=== PATIENT | female | born 1940 | race Caucasian/White ===

== ENCOUNTER 2016-11-27 17:36 | Inpatient (IN) | payer MEDICARE, BC ==
[2016-11-27] MEDS ORDERED: ASPIRIN 81 MG CHEW PO STA (18:43)
[2016-11-27] MEDS ORDERED: SODIUM CHLORIDE 0.9% 1,000 ML IV STA (18:43)
--- NOTE | 2016-11-27 18:52 | ED ---
Recheck HPI - General Chief Complaint: Recheck/Abnormal Lab/Rx Stated Complaint: anormal ekg Time Seen by Provider: 11/27/16 18:00 Source: patient, RN notes reviewed Mode of arrival: wheelchair Limitations: no limitations - History of Present Illness Initial Comments: This is a 76-year-old female with essentially benign past medical history who was sent in from her doctor's office for evaluation for chest discomfort and shortness of breath. She states it over the past week and overdose last day or so she was cutting grass and normally can do this all problems this time however she stopped 6 times for a period time because she was exertional dyspnea. She also had burning midsternal chest discomfort which was mild to moderate in severity. She currently is symptom free with did have apparently several other episodes of chest discomfort. She reason with her doctor's office because thought she had a urinary tract infection. EKG was done the PATIENT was sent here for further evaluation. She denies any fevers chills nausea vomiting sweats she does have a remote family history of a grandmother with heart disease that 78 patient personally has no personal history she is not a smoker. She does take a baby aspirin every evening. MD Complaint: other - Related Data Home Medications Medication Instructions Recorded Confirmed Calcium Carbonate [Calcium] 600 mg PO BID 11/05/14 11/27/16 Omeprazole [PriLOSEC] 20 mg PO AC-BRKFST 11/05/14 11/27/16 Pravastatin Sodium [Pravachol] 80 mg PO HS 11/05/14 11/27/16 Aspirin EC [Ecotrin Low Dose] 81 mg PO HS 11/27/16 11/27/16 Chlorthalidone [Hygroten] 50 mg PO DAILY 11/27/16 11/27/16 Furosemide [Lasix] 40 mg PO DAILY PRN 11/27/16 11/27/16 Multivitamins, Thera [Multivitamin 1 tab PO DAILY 11/27/16 11/27/16 (formulary)] Nitrofurantoin Monohyd/M-Cryst 100 mg PO BID 11/27/16 11/27/16 [Macrobid] Potassium Chloride ER [K-Dur 20] 20 meq PO DAILY PRN 11/27/16 11/27/16 Allergies Allergy/AdvReac Type Severity Reaction Status Date / Time aspirin AdvReac Burning Verified 11/27/16 18:57 sensation in stomach. Can only take Enteric Coated. erythromycin base AdvReac Abdominal Verified 11/27/16 17:49 Pain Estrogen Shot Preservative Allergy Swelling Uncoded 11/27/16 18:57 Review of Systems ROS Statement: Those systems with pertinent positive or pertinent negative responses have been documented in the HPI. ROS Other: All systems not noted in ROS Statement are negative. Past Medical History Past Medical History: Cancer, GERD/Reflux, Hyperlipidemia, Hypertension, Osteoarthritis (OA) Additional Past Medical History / Comment(s): recent epigastric pain, hx. skin cancer History of Any Multi-Drug Resistant Organisms: None Reported Past Surgical History: Section, Hysterectomy, Tubal Ligation Past Anesthesia/Blood Transfusion Reactions: No Reported Reaction Past Psychological History: Anxiety Smoking Status: Never smoker - Past Family History Father Family Medical History: Cancer General Exam - General Exam Comments Initial Comments: This is a well up well-nourished awake alert oriented 3 female Limitations: no limitations General appearance: alert, in no apparent distress Head exam: Present: atraumatic, normocephalic, normal inspection Eye exam: Present: normal appearance, PERRL, EOMI. Absent: scleral icterus, conjunctival injection, periorbital swelling ENT exam: Present: normal exam, mucous membranes moist Neck exam: Present: normal inspection. Absent: tenderness, meningismus, lymphadenopathy Respiratory exam: Present: normal lung sounds bilaterally. Absent: respiratory distress, wheezes, rales, rhonchi, stridor Cardiovascular Exam: Present: regular rate, normal rhythm, normal heart sounds. Absent: systolic murmur, diastolic murmur, rubs, gallop, clicks GI/Abdominal exam: Present: soft, normal bowel sounds. Absent: distended, tenderness, guarding, rebound, rigid Extremities exam: Present: normal inspection, full ROM, normal capillary refill. Absent: tenderness, pedal edema, joint swelling, calf tenderness Back exam: Present: normal inspection Neurological exam: Present: alert, oriented X3, CN II-XII intact Psychiatric exam: Present: normal affect, normal mood Skin exam: Present: warm, dry, intact, normal color. Absent: rash Course Vital Signs 11/27/16 11/27/16 11/27/16 17:45 19:02 19:05 Temperature 97.7 F Pulse Rate 64 68 Pulse Rate [ 68 Reed [employer] Instrument [employer]airer ] Respiratory 16 17 Rate Blood Pressure 174/84 180/81 O2 Sat by Pulse 99 100 Oximetry 11/27/16 11/27/16 20:14 21:01 Temperature 97.6 F Pulse Rate 65 62 Pulse Rate [ [employer]airer ] Respiratory 15 18 Rate Blood Pressure 188/85 152/71 O2 Sat by Pulse 98 99 Oximetry Medical Decision Making - Medical Decision Making I did discuss findings with patient family members patient will be admitted for evaluation of chest pain which is suspicious for new-onset angina. - Lab Data Result diagrams: 11/27/16 18:45 11/27/16 18:45 Lab Results 11/27/16 11/27/16 11/27/16 Range/Units 18:45 18:45 18:45 WBC 8.3 (3.8-10.6) k/uL RBC 4.70 (3.80-5.40) m/uL Hgb 14.3 (11.4-16.0) gm/dL Hct 44.9 (34.0-46.0) % MCV 95.5 (80.0-100.0) fL MCH 30.5 (25.0-35.0) pg MCHC 32.0 (31.0-37.0) g/dL RDW 16.2 H (11.5-15.5) % Plt Count 285 (150-450) k/uL Neutrophils % 68 % Lymphocytes % 23 % Monocytes % 5 % Eosinophils % 2 % Basophils % 1 % Neutrophils # 5.6 (1.3-7.7) k/uL Lymphocytes # 1.9 (1.0-4.8) k/uL Monocytes # 0.4 (0-1.0) k/uL Eosinophils # 0.2 (0-0.7) k/uL Basophils # 0.0 (0-0.2) k/uL Anisocytosis Slight PT (9.0-12.0) sec INR (<1.1) APTT (22.0-30.0) sec D-Dimer (<0.60) mg/L FEU Sodium 141 (137-145) mmol/L Potassium 3.6 (3.5-5.1) mmol/L Chloride 100 (98-107) mmol/L Carbon Dioxide 31 H (22-30) mmol/L Anion Gap 10 mmol/L BUN 12 (7-17) mg/dL Creatinine 0.50 L (0.52-1.04) mg/dL Est GFR (MDRD) Af Amer >60 (>60 ml/min/1.73 sqM) Est GFR (MDRD) Non-Af >60 (>60 ml/min/1.73 sqM) Glucose 102 H (74-99) mg/dL Calcium 9.7 (8.4-10.2) mg/dL Magnesium 1.5 L (1.6-2.3) mg/dL Total Bilirubin 0.6 (0.2-1.3) mg/dL AST 24 (14-36) U/L ALT 25 (9-52) U/L Alkaline Phosphatase 109 (38-126) U/L Total Creatine Kinase 40 (30-135) U/L CK-MB (CK-2) 1.1 (0.0-2.4) ng/mL CK-MB (CK-2) Rel Index 2.8 Troponin I <0.012 (0.000-0.034) ng/mL NT-Pro-B Natriuret Pep pg/mL Total Protein 6.9 (6.3-8.2) g/dL Albumin 4.3 (3.5-5.0) g/dL Amylase 40 (30-110) U/L Lipase 59 (23-300) U/L 11/27/16 11/27/16 Range/Units 18:45 18:45 WBC (3.8-10.6) k/uL RBC (3.80-5.40) m/uL Hgb (11.4-16.0) gm/dL Hct (34.0-46.0) % MCV (80.0-100.0) fL MCH (25.0-35.0) pg MCHC (31.0-37.0) g/dL RDW (11.5-15.5) % Plt Count (150-450) k/uL Neutrophils % % Lymphocytes % % Monocytes % % Eosinophils % % Basophils % % Neutrophils # (1.3-7.7) k/uL Lymphocytes # (1.0-4.8) k/uL Monocytes # (0-1.0) k/uL Eosinophils # (0-0.7) k/uL Basophils # (0-0.2) k/uL Anisocytosis PT 10.4 (9.0-12.0) sec INR 1.0 (<1.1) APTT 25.0 (22.0-30.0) sec D-Dimer 0.20 (<0.60) mg/L FEU Sodium (137-145) mmol/L Potassium (3.5-5.1) mmol/L Chloride (98-107) mmol/L Carbon Dioxide (22-30) mmol/L Anion Gap mmol/L BUN (7-17) mg/dL Creatinine (0.52-1.04) mg/dL Est GFR (MDRD) Af Amer (>60 ml/min/1.73 sqM) Est GFR (MDRD) Non-Af (>60 ml/min/1.73 sqM) Glucose (74-99) mg/dL Calcium (8.4-10.2) mg/dL Magnesium (1.6-2.3) mg/dL Total Bilirubin (0.2-1.3) mg/dL AST (14-36) U/L ALT (9-52) U/L Alkaline Phosphatase (38-126) U/L Total Creatine Kinase (30-135) U/L CK-MB (CK-2) (0.0-2.4) ng/mL CK-MB (CK-2) Rel Index Troponin I (0.000-0.034) ng/mL NT-Pro-B Natriuret Pep 182 pg/mL Total Protein (6.3-8.2) g/dL Albumin (3.5-5.0) g/dL Amylase (30-110) U/L Lipase (23-300) U/L - EKG Data -: EKG Interpreted by Ca EKG shows normal: sinus rhythm (Sinus rhythm a rate of 67. 01 24 QRS duration 80 daily since QTC of 434/[address]-T wave configuration as compared to an EKG done in the office earlier today. It appears to have a similar morphology.) - Radiology Data Radiology results: report reviewed (I did review the imaging and reports no acute findings are seen.), image reviewed Disposition Clinical Impression: Unstable angina Disposition: ADMITTED IP TO THIS [facility] Condition: Stable Referrals: Ran Mcgrath MD [Primary Care Provider] - 1-2 days
[2016-11-27 18:59] LABS: Anisocytosis Slight; Basophils % (A) 1 %; CHCM 32.6; Eosinophils # (A) 0.2 k/uL (0-0.7); Eosinophils % (A) 2 %; HCT 44.9 % (34.0-46.0); HDW 2.75; HGB 14.3 gm/dL (11.4-16.0); Luc # (Auto) 0.16; Luc % (Auto) 2; Lymphocytes # (A) 1.9 k/uL (1.0-4.8); Lymphocytes % (A) 23 %; MCH 30.5 pg (25.0-35.0); MCV 95.5 fL (80.0-100.0); Mean Platelet Volume 6.5; Monocytes # (A) 0.4 k/uL (0-1.0); Monocytes % (A) 5 %; Neutrophils # (A) 5.6 k/uL (1.3-7.7); Neutrophils % (A) 68 %; RDW 16.2 % (11.5-15.5); WBC 8.3 k/uL (3.8-10.6); WBC (Perox) 8.04
[2016-11-27 19:09] LABS: ALT 25 U/L (9-52); AST 24 U/L (14-36); Alkaline Phosphatase 109 U/L (38-126); Amylase 40 U/L (30-110); Anion Gap 10 mmol/L; Blood Urea Nitrogen 12 mg/dL (7-17); Calcium 9.7 mg/dL (8.4-10.2); Carbon Dioxide 31 mmol/L (22-30); Chloride 100 mmol/L (98-107); Glucose 102 mg/dL (74-99); Magnesium 1.5 mg/dL (1.6-2.3); Non-African American GFR(MDRD) >60 (>60 ml/min/1.73 sqM); Potassium 3.6 mmol/L (3.5-5.1); Sodium 141 mmol/L (137-145); Total Bilirubin 0.6 mg/dL (0.2-1.3); Total Protein 6.9 g/dL (6.3-8.2)
--- NOTE | 2016-11-27 19:09 | XR ---
EXAMINATION TYPE: XR chest 2V DATE OF EXAM: 11/27/2016 COMPARISON: NONE HISTORY: Chest pain TECHNIQUE: Frontal and lateral views of the chest are obtained. FINDINGS: Heart and mediastinum are normal. Lungs are clear. There is no pleural effusion. There are no hilar masses. There is some mild linear density in the right upper lobe. Bony thorax is intact. IMPRESSION: Minimal subsegmental atelectasis in the right upper lobe. Normal heart.
[2016-11-27 19:15] LABS: Prothrombin Time 10.4 sec (9.0-12.0)
[2016-11-27 19:30] LABS: Creatine Kinase 40 U/L (30-135)
[2016-11-27 19:41] LABS: Creatine Kinase MB 1.1 ng/mL (0.0-2.4); Troponin I <0.012 ng/mL (0.000-0.034)
[2016-11-27] MEDS ORDERED: MAGNESIUM SULFATE-D5W PMX 1 GM in DEXTROSE/WATER 1 100ML.BAG IVPB ONE (21:00)
[2016-11-27] MEDS ORDERED: NITROGLYCERIN SL TABS 0.4 MG TAB SUBLINGUAL PRN (21:07)
[2016-11-27] MEDS ORDERED: HEPARIN SODIUM,PORCINE 5,000 UNIT/ML 1 ML VIAL IV ONE (21:07)
[2016-11-27] MEDS ORDERED: POTASSIUM CHLORIDE ER 20 MEQ TAB.ER PO PRN (21:09)
[2016-11-27] MEDS ORDERED: FUROSEMIDE 40 MG TAB PO PRN (21:09)
--- NOTE | 2016-11-27 21:11 | ED ---
Medical Decision Making - Lab Data Result diagrams: 11/27/16 18:45 11/27/16 18:45 Lab Results 11/27/16 11/27/16 11/27/16 Range/Units 18:45 18:45 18:45 WBC 8.3 (3.8-10.6) k/uL RBC 4.70 (3.80-5.40) m/uL Hgb 14.3 (11.4-16.0) gm/dL Hct 44.9 (34.0-46.0) % MCV 95.5 (80.0-100.0) fL MCH 30.5 (25.0-35.0) pg MCHC 32.0 (31.0-37.0) g/dL RDW 16.2 H (11.5-15.5) % Plt Count 285 (150-450) k/uL Neutrophils % 68 % Lymphocytes % 23 % Monocytes % 5 % Eosinophils % 2 % Basophils % 1 % Neutrophils # 5.6 (1.3-7.7) k/uL Lymphocytes # 1.9 (1.0-4.8) k/uL Monocytes # 0.4 (0-1.0) k/uL Eosinophils # 0.2 (0-0.7) k/uL Basophils # 0.0 (0-0.2) k/uL Anisocytosis Slight PT (9.0-12.0) sec INR (<1.1) APTT (22.0-30.0) sec D-Dimer (<0.60) mg/L FEU Sodium 141 (137-145) mmol/L Potassium 3.6 (3.5-5.1) mmol/L Chloride 100 (98-107) mmol/L Carbon Dioxide 31 H (22-30) mmol/L Anion Gap 10 mmol/L BUN 12 (7-17) mg/dL Creatinine 0.50 L (0.52-1.04) mg/dL Est GFR (MDRD) Af Amer >60 (>60 ml/min/1.73 sqM) Est GFR (MDRD) Non-Af >60 (>60 ml/min/1.73 sqM) Glucose 102 H (74-99) mg/dL Calcium 9.7 (8.4-10.2) mg/dL Magnesium 1.5 L (1.6-2.3) mg/dL Total Bilirubin 0.6 (0.2-1.3) mg/dL AST 24 (14-36) U/L ALT 25 (9-52) U/L Alkaline Phosphatase 109 (38-126) U/L Total Creatine Kinase 40 (30-135) U/L CK-MB (CK-2) 1.1 (0.0-2.4) ng/mL CK-MB (CK-2) Rel Index 2.8 Troponin I <0.012 (0.000-0.034) ng/mL NT-Pro-B Natriuret Pep pg/mL Total Protein 6.9 (6.3-8.2) g/dL Albumin 4.3 (3.5-5.0) g/dL Amylase 40 (30-110) U/L Lipase 59 (23-300) U/L 11/27/16 11/27/16 Range/Units 18:45 18:45 WBC (3.8-10.6) k/uL RBC (3.80-5.40) m/uL Hgb (11.4-16.0) gm/dL Hct (34.0-46.0) % MCV (80.0-100.0) fL MCH (25.0-35.0) pg MCHC (31.0-37.0) g/dL RDW (11.5-15.5) % Plt Count (150-450) k/uL Neutrophils % % Lymphocytes % % Monocytes % % Eosinophils % % Basophils % % Neutrophils # (1.3-7.7) k/uL Lymphocytes # (1.0-4.8) k/uL Monocytes # (0-1.0) k/uL Eosinophils # (0-0.7) k/uL Basophils # (0-0.2) k/uL Anisocytosis PT 10.4 (9.0-12.0) sec INR 1.0 (<1.1) APTT 25.0 (22.0-30.0) sec D-Dimer 0.20 (<0.60) mg/L FEU Sodium (137-145) mmol/L Potassium (3.5-5.1) mmol/L Chloride (98-107) mmol/L Carbon Dioxide (22-30) mmol/L Anion Gap mmol/L BUN (7-17) mg/dL Creatinine (0.52-1.04) mg/dL Est GFR (MDRD) Af Amer (>60 ml/min/1.73 sqM) Est GFR (MDRD) Non-Af (>60 ml/min/1.73 sqM) Glucose (74-99) mg/dL Calcium (8.4-10.2) mg/dL Magnesium (1.6-2.3) mg/dL Total Bilirubin (0.2-1.3) mg/dL AST (14-36) U/L ALT (9-52) U/L Alkaline Phosphatase (38-126) U/L Total Creatine Kinase (30-135) U/L CK-MB (CK-2) (0.0-2.4) ng/mL CK-MB (CK-2) Rel Index Troponin I (0.000-0.034) ng/mL NT-Pro-B Natriuret Pep 182 pg/mL Total Protein (6.3-8.2) g/dL Albumin (3.5-5.0) g/dL Amylase (30-110) U/L Lipase (23-300) U/L Disposition Clinical Impression: Unstable angina, Hypomagnesemia Disposition: ADMITTED IP TO THIS HOSP Condition: Stable Referrals: Ran Mcgrath MD [Primary Care Provider] - 1-2 days
[2016-11-27] MEDS ORDERED: HEPARIN SODIUM,PORCINE/D5W PMX 25,000 UNIT in DEXTROSE/WATER 1 500ML.BAG IV SCH (21:15)
[2016-11-27] MEDS: SODIUM CHLORIDE 0.9% 1,000 ML IV SCH (21:26)
[2016-11-27] MEDS ORDERED: CHLORTHALIDONE 25 MG TAB PO SCH (22:45)
[2016-11-27] MEDS ORDERED: CHLORTHALIDONE 25 MG TAB PO ONE (22:45)
[2016-11-27 22:56] VITALS: BMI 35.2
[2016-11-27] MEDS: PRAVASTATIN SODIUM 80 MG TAB PO SCH (23:02)
[2016-11-28 02:05] LABS: Troponin I 0.027 ng/mL (0.000-0.034)
[2016-11-28] MEDS: NITROGLYCERIN OINT 1 INCH/GM PACKET TOPICAL SCH ×5 (03:51→23:28)
[2016-11-28 05:20] LABS: Cholesterol 160 mg/dL (<200); HDL Cholesterol 55 mg/dL (40-60); Triglycerides 159 mg/dL (<150)
[2016-11-28] MEDS ORDERED: ALPRAZolam 0.25 MG TAB PO PRN (07:13)
[2016-11-28] MEDS ORDERED: SODIUM CHLORIDE 0.9% 1,000 ML in EMPTY BAG 1 BAG IV ONE (07:13)
[2016-11-28] MEDS ORDERED: NITROGLYCERIN SL TABS 0.4 MG TAB SUBLINGUAL PRN (07:13)
[2016-11-28] MEDS ORDERED: ATORVASTATIN 80 MG TAB PO STA (07:13)
[2016-11-28] MEDS ORDERED: ASPIRIN 325 MG TAB PO STA (07:13)
[2016-11-28] MEDS ORDERED: ALPRAZolam 0.5 MG TAB PO PRN (07:13)
[2016-11-28 07:54] LABS: Creatine Kinase MB 1.1 ng/mL (0.0-2.4); Troponin I 0.014 ng/mL (0.000-0.034)
--- NOTE | 2016-11-28 08:16 | CONS ---
DATE OF CONSULTATION: Mrs. Jalloh is a 76-year-old female with known history of hypertension and hyperlipidemia who presented to the walk-in clinic because of symptoms of UTI. She describes symptoms of chest discomfort, burning like that occurred last week while she was cutting the grass. Every time she cuts the grass, she gets discomfort. She will sit down, the discomfort will resolve and when she happens to get up and cut the grass again the discomfort reoccurs. Because of those symptom, she was sent to the emergency room. At time of my evaluation, she was pain free. Patient had no prior similar symptoms and no prior documented history of significant obstructive disease. She is followed by Dr. Grace on a regular basis and according to her, underwent cardiac catheterization about 5 years ago that was unremarkable. Patient has mild dyspnea on exertion, has no dizziness, no palpitation. She has some peripheral edema. No PND. No orthopnea. Her coronary risk factors are remarkable for hypertension, hyperlipidemia. She is a nonsmoker, nondiabetic. Her medications include chlorthalidone 50 mg daily, omeprazole, pravastatin 80 mg daily, aspirin 81 mg daily, calcium and vitamins. REVIEW OF SYSTEMS: RESPIRATORY SYSTEM: She has no recent wheezing. No cough. She has mild dyspnea on exertion. GI SYSTEM: No recent GI bleeding. No peptic ulcer disease. SYSTEM: No hematuria. She has symptoms of urinary tract infection. NERVOUS SYSTEM: No history of stroke or seizure. PHYSICAL EXAMINATION: A 76-year-old female, alert, oriented, in no apparent distress. Blood pressure 115/50 with the heart rate in the 60s. LUNGS: Clear. HEART: Regular rate and rhythm. S1, S2, no S3, no rub. ABDOMEN: Soft, nontender, positive bowel sounds. No organomegaly. EXTREMITIES: +1 edema. Intact distal pulses. LABORATORY DATA: EKG revealed sinus mechanism, rate [address]-T wave changes. Her troponin less than 0.012 and 0.027. Cholesterol 103, LDL of 73. Her magnesium 1.5. BUN and creatinine 12 and 0.5. Potassium 3.6. Hemoglobin of 14.3. IMPRESSION: 1. Symptoms of chest discomfort highly suggestive of new onset angina pectoris in a patient with history of hypertension and hyperlipidemia. 2. History of peripheral vascular disease with right carotid moderate disease. 3. Hypertension. 4. Hyperlipidemia. RECOMMENDATIONS: I have recommended to obtain echocardiogram with Doppler. I have also recommended to proceed with coronary angiography to further assess her status and guide her treatment. The procedure will be done by Dr. Grace. The rationale behind the procedure as well as risks and complications were discussed with the patient, who is full understanding and agreement. Thank you for this consult. We will follow with you.
[2016-11-28] MEDS: CALCIUM CARBONATE 500 MG CHEWABLE PO SCH ×2 (09:04→20:35)
[2016-11-28] MEDS: ASPIRIN 325 MG TAB PO SCH (09:04)
[2016-11-28] MEDS: CHLORTHALIDONE 25 MG TAB PO SCH (09:04)
[2016-11-28] MEDS: PANTOPRAZOLE 40 MG TABLET PO SCH (09:04)
--- NOTE | 2016-11-28 11:11 | ECHOF ---
Referral Reason: MEASUREMENTS -------- HEIGHT: 152.4 cm WEIGHT: 81.6 kg BP: 129/63 IVSd: 1.1 cm (0.6 - 1.1) LVIDd: 3.6 cm (3.9 - 5.3) LVPWd: 1.2 cm (0.6 - 1.1) IVSs: 1.6 cm LVIDs: 2.0 cm LVPWs: 1.3 cm LAESV Index (A-L): 26.53 ml/m Ao Diam: 2.8 cm (2.0 - 3.7) AV Cusp: 1.6 cm (1.5 - 2.6) LA Diam: 3.9 cm (2.7 - 3.8) MV EXCURSION: 12.842 mm (> 18.000) MV EF SLOPE: 67 mm/s (70 - 150) EPSS: 0.3 cm MV E Paul: 0.76 m/s MV DecT: 204 ms MV A Paul: 0.99 m/s MV E/A Ratio: 0.76 RAP: 5.00 mmHg RVSP: 15.06 mmHg FINDINGS -------- Sinus rhythm. This was a technically good study. There is borderline concentric left ventricular hypertrophy. Overall left ventricular systolic function is normal with, an EF between 55 - 60 %. The right ventricle is normal in size and function. Normal LA size by volume 22+/-6 ml/m2. The right atrium is normal in size. Aortic valve is trileaflet and is mildly thickened. The mitral valve leaflets are mildly thickened. [id number]-[id number] mitral regurgitation is present. Mild tricuspid regurgitation present. The right ventricular systolic pressure, as measured by Doppler, is 15.06mmHg. Pulmonic valve appears structurally normal. The aortic root size is normal. The pericardium is normal. CONCLUSIONS -------- 1. Sinus rhythm. 2. Cupk-km-ebzxuhgg mitral regurgitation is present. 3. Mild tricuspid regurgitation present. 4. The right ventricular systolic pressure, as measured by Doppler, is 15.06mmHg. 5. Pulmonic valve appears structurally normal. 6. The aortic root size is normal. 7. The pericardium is normal. 8. This was a technically good study. 9. There is borderline concentric left ventricular hypertrophy. 10. Overall left ventricular systolic function is normal with, an EF between 55 - 60 %. 11. The right ventricle is normal in size and function. 12. Normal LA size by volume 22+/-6 ml/m2. 13. The right atrium is normal in size. 14. Aortic valve is trileaflet and is mildly thickened. 15. The mitral valve leaflets are mildly thickened. CFO: Danni Trujillo RDCS
[2016-11-28] MEDS ORDERED: HEPARIN SODIUM 1,000 UNIT/ML VIAL ONE (15:39)
[2016-11-28] MEDS ORDERED: LIDOCAINE 2% INJ 20 MG/ML (20 ML MDV) ONE (15:40)
[2016-11-28] MEDS ORDERED: MIDAZOLAM 2 MG/2 ML VIAL ONE (16:14)
[2016-11-28] MEDS ORDERED: SODIUM CHLORIDE 0.9% 1,000 ML IV ONE (16:26)
[2016-11-28] MEDS ORDERED: MIDAZOLAM 2 MG/2 ML VIAL IV ONE (16:26)
[2016-11-28] MEDS ORDERED: LIDOCAINE 2% INJ 20 MG/ML SQ ONE (16:30)
[2016-11-28] MEDS ORDERED: fentaNYL (PF) 50 MCG/ML 2 ML AMP ONE (16:32)
[2016-11-28] MEDS ORDERED: fentaNYL (PF) 50 MCG/ML 2 ML AMP IV ONE (16:33)
[2016-11-28] MEDS ORDERED: IOHEXOL 350 MG/ML 125ML BOTTLE INTRATHECA ONE (16:39)
[2016-11-28] MEDS ORDERED: RX INFO: IV CONTRAST WAS GIVEN 1 EACH MISC MISCELLANE PRN (16:51)
--- NOTE | 2016-11-28 17:13 | CC ---
DATE OF SERVICE: INDICATION: Unstable angina. After obtaining informed consent, left heart catheterization and coronary angiogram are performed via the right femoral artery using standard Ellyn catheters. Patient tolerated the procedure well without any obvious immediate complications. A femoral angiogram was performed and Angio-Seal was deployed for hemostasis total sedation time was 20 minutes. FINDINGS: HEMODYNAMICS: Left ventricular end-diastolic pressure is 14 mm. There is no significant gradient across the aortic valve. ANGIOGRAPHIC DATA: LEFT MAIN CORONARY ARTERY: Left main coronary artery is a normal size vessel and is free of stenosis. Divides into left anterior descending coronary artery and circumflex coronary artery. CIRCUMFLEX CORONARY ARTERY: Circumflex coronary artery gives off a high OM branch, shows mild atherosclerotic plaque. LEFT ANTERIOR DESCENDING CORONARY ARTERY: LAD shows a mild atherosclerotic plaque in its midportion. RIGHT CORONARY ARTERY: Right coronary artery is a large dominant vessel and is free of significant stenosis. CONCLUSIONS: 1. Mild nonobstructive coronary artery disease. 2. Calcified vessels. 3. Normal left ventricular end-diastolic pressures. PLAN: Patient's chest discomfort is probably noncardiac in origin. Her management is going to be in the form of optimal medical therapy and risk factor modification. The patient can be discharged home tomorrow morning and follow-up arranged in my office in 2 weeks.
[2016-11-28] MEDS: SODIUM CHLORIDE 0.9% 1,000 ML IV SCH ×2 (17:44→23:29)
--- NOTE | 2016-11-28 19:31 | HP ---
DATE OF ADMISSION: 11/27/2016 PRESENTING COMPLAINT: Chest burn. HISTORY OF PRESENTING COMPLAINT: A very pleasant 76 -year-old patient of Dr. Mcgrath whose chronic stable medical conditions include GERD, hyperlipidemia, hypertension, osteoarthritis, anxiety. 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 Developed burning sensation. The patient relaxed and took some water. Did a few more laps but she had to stop off and on. She has noticed that with activity she is getting some burning sensation in the chest, happen to go into her family doctor for a UTI, after they talked to her, they decided to send her in because of her symptoms. REVIEW OF SYSTEMS: The patient had no previous cardiac history. Patient does gets short-winded though with activity. Admitted for the same for cardiac work-up. REVIEW OF SYSTEMS: CONSTITUTIONAL: Tired. HEENT: None. RESPIRATORY: As above. CARDIOVASCULAR: As above. GASTROINTESTINAL: Heartburn. GENITOURINARY: None. MUSCULOSKELETAL: Pain in the joints. Dermatological: None. HEMATOLOGICAL: None. LYMPHATIC: None. PSYCHIATRY: Anxiety. NEUROLOGICAL: None. Past history of GERD, hypertension, hyperlipidemia, osteoarthritis, anxiety. Skin cancer. PAST SURGICAL HISTORY: , hysterectomy, tonsillectomy, tubal ligation. SOCIAL HISTORY: Does not smoke or drink alcohol. . FAMILY HISTORY: Cancer, type unknown. HOME MEDICATIONS: 1. Potassium 20 mEq a day and p.r.n. 2. Lasix 40 mg daily p.r.n. 3. Pravachol 80 mg q.h.s. 4. Prilosec 20 mg with breakfast. 5. Nitrofuran. 6. Macrobid 100 mg p.o. b.i.d., 7. Multivitamin 1 tablet. 8. Hydrocodone 50 mg p.o. daily. 9. Calcium 600 mg p.o. t.i.d. 10. Aspirin 81 mg p.o. q.h.s. ALLERGIES: ASPIRIN, ERYTHROMYCIN, ESTROGEN. On examination, temperature 97.5, pulse 69, respiratory rate 16, blood pressure 115/67, pulse ox 95% on room air. GENERAL: Well built, BMI of 35.2, lying in bed, comfortable. EYES: Pupils equal. Conjunctivae normal. HEENT: External appearance of nose and ears normal. Oral cavity normal. NECK: JVD not raised. Mass not palpable. RESPIRATORY: Effort normal. Lungs are clear. CARDIOVASCULAR: First and second sounds normal. No edema. ABDOMEN: Soft, nontender. Liver and spleen not palpable. LYMPHATIC: No lymph nodes palpable in neck or axillae. PSYCHIATRY: Alert and oriented x3. Mood and affect normal. NEUROLOGICAL: Pupils equal. Cranial nerves contact us grossly intact. Power and sensation grossly intact. MUSCULOSKELETAL: Evidence of osteoarthritis especially in the hands and knees. INVESTIGATIONS: White count 8.3, hemoglobin 14.3, potassium 3.6. BUN 12, creatinine 0.5. Troponin 0.012, 0.027, LDL 73. EKG shows nonspecific ST-segment changes. 2D echocardiogram EF 55-60%. ASSESSMENT: 1. Unstable angina ( ) presentation and the patient's cardiac risk factors include hyperlipidemia, hypertension, obesity, her age and some EKG changes, now being scheduled for a cardiac catheterization by cardiology for definite diagnosis. 2. Gastroesophageal reflux disease. 3. Essential hypertension. 4. Hyperlipidemia. 5. Primary osteoarthritis in multiple joints. 6. Anxiety, not otherwise specified. 7. Obesity; body mass index 35.2. 8. IV heparin monitoring. PLAN: Patient is on aspirin, nitro paste and IV heparin, boarded for cardiac catheterization, seen by Dr. Eldridge. Care was discussed with the patient and . Questions were answered.
[2016-11-28] MEDS ORDERED: ACETAMINOPHEN TAB 325 MG TAB PO PRN (20:14)
[2016-11-28] MEDS: PRAVASTATIN SODIUM 80 MG TAB PO SCH (20:36)
[2016-11-28] MEDS ORDERED: PRAVASTATIN SODIUM 80 MG TAB PO SCH (21:00)
[2016-11-29] MEDS: NITROFURANTOIN MONOHYD/M-CRYST 100 MG CAP PO SCH ×2 (00:20→08:20)
[2016-11-29] MEDS: NITROGLYCERIN OINT 1 INCH/GM PACKET TOPICAL SCH (04:50)
[2016-11-29 07:45] VITALS: RESP 18
[2016-11-29] MEDS: ASPIRIN 325 MG TAB PO SCH (08:20)
[2016-11-29] MEDS: CALCIUM CARBONATE 500 MG CHEWABLE PO SCH (08:20)
[2016-11-29] MEDS: PANTOPRAZOLE 40 MG TABLET PO SCH (08:21)
[2016-11-29] MEDS: CHLORTHALIDONE 25 MG TAB PO SCH (08:21)
[2016-11-29 12:02] VITALS: BP 118/63; PULSE 59; TEMP 97.8
--- NOTE | 2016-11-29 12:55 | PN ---
Mrs. Jalloh is a 76-year-old female who presented with symptoms of chest discomfort with physical activity. She underwent cardiac catheterization by Dr. Grace and was found to have no evidence of obstructive disease. She is doing well this morning. She has symptoms of UTI. Otherwise, no chest discomfort. Her breathing has been stable. She continued to be on aspirin once a day, chlorthalidone 50 mg daily, nitro paste, Protonix, pravastatin 80 mg daily. PHYSICAL EXAMINATION: Blood pressure 119/60 with the heart rate in 60s. LUNGS: Clear. HEART: Regular rate rhythm. S1, S2, no S3, no rub. ABDOMEN: Soft, nontender. EXTREMITIES: No edema. RIGHT GROIN: No hematoma. IMPRESSION: 1. Chest discomfort with no evidence of obstructive coronary artery disease. 2. History of hyperlipidemia. 3. History of hypertension. 4. Peripheral vascular disease with moderate carotid disease. RECOMMENDATION: From the cardiac standpoint, she should be able to be discharged home today. Her cardiac catheterization revealed no evidence of abnormalities. She will follow up with Dr. Grace on a regular basis.
[2016-11-29] MEDS: SODIUM CHLORIDE 0.9% 1,000 ML IV SCH (15:10)
--- NOTE | 2016-12-01 15:17 | DS ---
DATE OF ADMISSION: 11/27/2016 DATE OF DISCHARGE: 11/29/2016 FINAL DIAGNOSES: 1. Chest pain, possible unstable angina. 2. Cardiac catheterization showing mild nonobstructive coronary artery disease and calcified vessels. 3. Gastroesophageal reflux disease. 4. Essential hypertension. 5. Hyperlipidemia. 6. Primary degenerative joint disease of multiple joints. 7. Anxiety, not otherwise specified. 8. Obesity, body mass index 35.2. 9. Heparin monitoring. DISCHARGE DISPOSITION: The patient will be discharged in stable condition with guarded prognosis after Cardiology clearance. HISTORY OF PRESENT ILLNESS: This 76-year-old woman with a past medical history of multiple medical problems admitted with chest pain. Myocardial infarction ruled out. The patient underwent cardiac catheterization which showed minimal nonobstructive coronary artery disease treated symptomatically, medically improved significantly. On exam, vitals are stable. CARDIOVASCULAR: S1, S2. ABDOMEN: Soft. NERVOUS SYSTEM: No focal deficit. DISCHARGE ADVICE: 1. Diet is cardiac. 2. Activity limited until follow up. 3. Follow with cardiology as recommended. 4. Follow with Dr. Mcgrath in 2 to 3 days. MEDICATIONS: 1. Ecotrin 81 mg p.o. q.h.s. 2. Calcium 600 mg p.o. b.i.d. 3. Hygroton 50 mg p.o. daily. 4. Lasix 40 mg p.o. daily. 5. Multivitamin 1 p.o. daily. 6. Nitrofurantoin 100 mg p.o. b.i.d. 7. Prilosec 20 mg daily. 8. K-Dur 20 mEq p.o. daily. 9. Pravachol 80 mg p.o. daily. Once again, the patient will be discharged in a stable condition with guarded prognosis.
== END 2016-11-29 15:41 | disposition home or self-care (01) | DRG 287 ==
LOC: EC 17:36 → OBSVTOIN 21:10 → 3OBS 21:10
PROVIDERS: ADMIT Hospitalist; ATTEND Hospitalist
PROC: B2111ZZ Fluoroscopy of Multiple Coronary Arteries using Low Osmolar Contrast (ICD-10-PCS; 2016-11-28)
PROC: 4A023N7 Measurement of Cardiac Sampling and Pressure, Left Heart, Percutaneous Approach (ICD-10-PCS; principal; 2016-11-28 15:53)
DX: R07.9 Chest pain, unspecified (principal); N39.0 Urinary tract infection, site not specified; I10 Essential (primary) hypertension; E78.5 Hyperlipidemia, unspecified; I73.9 Peripheral vascular disease, unspecified; K21.9 Gastro-esophageal reflux disease without esophagitis; F41.9 Anxiety disorder, unspecified; M19.91 Primary osteoarthritis, unspecified site; E66.9 Obesity, unspecified; Z68.35 Body mass index [BMI] 35.0-35.9, adult; Z85.828 Personal history of other malignant neoplasm of skin; Z90.710 Acquired absence of both cervix and uterus; Z79.82 Long term (current) use of aspirin; Z79.899 Other long term (current) drug therapy
CPT/HCPCS: 36415; 71020; 80053; 80061; 82150; 82550; 82553; 83690; 83735; 83880; 84484; 85025; 85379; 85610; 85730; 93005; 93306; 93458; 96361; 96365; 96368; 96376; 99285

== ENCOUNTER 2017-08-17 11:35 | Emergency (ER) | payer MEDICARE, BC ==
[2017-08-17] MEDS ORDERED: MORPHINE SULFATE 4 MG/ML SYRINGE IVP STA (12:24)
[2017-08-17] MEDS ORDERED: SODIUM CHLORIDE 0.9% 1,000 ML IV STA ×2 (12:24)
[2017-08-17] MEDS ORDERED: METOCLOPRAMIDE 5 MG/ML 2 ML VIAL IVP STA (13:17)
--- NOTE | 2017-08-17 13:19 | ED ---
Nausea/Vomiting/Diarrhea HPI - General Chief complaint: Nausea/Vomiting/Diarrhea Stated complaint: Nausea/Vomiting Time Seen by Provider: 08/17/17 11:52 Source: patient Mode of arrival: EMS Limitations: physical limitation - History of Present Illness Initial comments: This patient is a 77-year-old female presents the chief complaint of nausea and vomiting for approximately one day. Denies abdominal pain chestpain, or shortness of breath. She also complains of lower tailbone pain. She states this is due to the position she is laying in. Patient states she had a clear emesis and then turned to yellow. She denies eating anything that could've upset her stomach. She denies any significant tenderness at this time. Mushtaq later relates that she was under a boil water advisery, and she reports that it was lifted yesterday. She questions if maybe she cooked with water too soon without boiling it last night. - Related Data Home Medications Medication Instructions Recorded Confirmed Calcium Carbonate [Calcium] 600 mg PO BID 11/05/14 08/17/17 Omeprazole [PriLOSEC] 20 mg PO AC-BRKFST 11/05/14 08/17/17 Pravastatin Sodium [Pravachol] 80 mg PO HS 11/05/14 08/17/17 Aspirin EC [Ecotrin Low Dose] 81 mg PO HS 11/27/16 08/17/17 Furosemide [Lasix] 40 mg PO DAILY PRN 11/27/16 08/17/17 Multivitamins, Thera [Multivitamin 1 tab PO DAILY 11/27/16 08/17/17 (formulary)] ALPRAZolam [Xanax] 0.25 mg PO BID PRN 08/17/17 08/17/17 Fish Oil/Dha/Epa [Fish Oil 1,200 1 each PO DAILY 08/17/17 08/17/17 mg Fish Oil] Hydrochlorothiazide [Hydrodiuril] 25 mg PO DAILY 08/17/17 08/17/17 Previous Rx's Medication Instructions Recorded Ondansetron Odt [Zofran Odt] 4 mg PO Q8HR PRN #12 tab 08/17/17 Allergies Allergy/AdvReac Type Severity Reaction Status Date / Time aspirin AdvReac Burning Verified 08/17/17 15:36 sensation in stomach. Can only take Enteric Coated. erythromycin base AdvReac Abdominal Verified 08/17/17 15:36 Pain Estrogen Shot Preservative Allergy Swelling Uncoded 08/17/17 11:56 Review of Systems ROS Statement: Those systems with pertinent positive or pertinent negative responses have been documented in the HPI. ROS Other: All systems not noted in ROS Statement are negative. Past Medical History Past Medical History: Cancer, GERD/Reflux, Hyperlipidemia, Hypertension, Osteoarthritis (OA) Additional Past Medical History / Comment(s): skin cancer History of Any Multi-Drug Resistant Organisms: None Reported Past Surgical History: Section, Hysterectomy, Tonsillectomy, Tubal Ligation Past Anesthesia/Blood Transfusion Reactions: No Reported Reaction Past Psychological History: Anxiety Smoking Status: Never smoker Past Alcohol Use History: None Reported Past Drug Use History: None Reported - Past Family History Father Family Medical History: Cancer General Exam - General Exam Comments Initial Comments: Pleasant 77 year old female no acute distress. Limitations: physical limitation General appearance: alert, in no apparent distress Head exam: Present: atraumatic, normocephalic, normal inspection Eye exam: Present: normal appearance, PERRL, EOMI. Absent: scleral icterus, conjunctival injection, periorbital swelling ENT exam: Present: normal exam, mucous membranes moist Neck exam: Present: normal inspection. Absent: tenderness, meningismus, lymphadenopathy Respiratory exam: Present: normal lung sounds bilaterally. Absent: respiratory distress, wheezes, rales, rhonchi, stridor GI/Abdominal exam: Present: soft, normal bowel sounds. Absent: distended, tenderness, guarding, rebound, rigid Extremities exam: Present: normal inspection, full ROM, normal capillary refill. Absent: tenderness, pedal edema, joint swelling, calf tenderness Back exam: Present: normal inspection Neurological exam: Present: alert, oriented X3, CN II-XII intact Psychiatric exam: Present: normal affect, normal mood Course Vital Signs 08/17/17 08/17/17 11:35 16:04 Temperature 99.1 F 98.5 F Pulse Rate 97 102 H Respiratory 18 15 Rate Blood Pressure 129/60 120/56 O2 Sat by Pulse 97 94 L Oximetry Medical Decision Making - Medical Decision Making This patient is 77-year-old female chief complaint of vomiting for approximately one day. She denies any abdominal pain. Patient was given IV fluids and lab work was obtained. Patient's labwork is all reviewed and within normal limits. EKG shows no significant changes compared to previous EKGs, chest x-ray was reviewed and normal. KUB shows evidence of enteritis. Again patient has no tenderness on exam. At this time I discussed the patient likely has a viral gastritis or could be related to "food poisoning". She also relates that she had a boil water advisory that was recently lifted. She did Cook with her Water and wonders if he could've been contaminated. I discussed with her to just use bottled water, remain hydrated. We'll discharge the patient with Zofran. Discussed that she needs of a clear liquid diet for the next 24-48 hours and then slowly advance her diet. Discussed falling up with primary care provider. Strict return parameters were discussed such as if she does develop abdominal pain, has fevers chills or any other abnormal symptoms. Patient agrees to treatment plan will comply. Return parameters were discussed. - Lab Data Result diagrams: 08/17/17 12:55 08/17/17 12:55 Lab Results 08/17/17 08/17/17 08/17/17 Range/Units 12:55 12:55 12:55 WBC 8.9 (3.8-10.6) k/uL RBC 4.89 (3.80-5.40) m/uL Hgb 15.3 (11.4-16.0) gm/dL Hct 47.0 H (34.0-46.0) % MCV 96.2 (80.0-100.0) fL MCH 31.3 (25.0-35.0) pg MCHC 32.5 (31.0-37.0) g/dL RDW 14.7 (11.5-15.5) % Plt Count 274 (150-450) k/uL Neutrophils % (Manual) 75 % Band Neutrophils % 13 % Lymphocytes % (Manual) 4 % Monocytes % (Manual) 9 % Eosinophils % (Manual) 1 % Neutrophils # (Manual) 7.80 H (1.3-7.7) k/uL Lymphocytes # (Manual) 0.36 L (1.0-4.8) k/uL Monocytes # (Manual) 0.80 (0-1.0) k/uL Eosinophils # (Manual) 0.09 (0-0.7) k/uL Nucleated RBCs 0 (0-0) /100 WBC Manual Slide Review Performed Sodium 143 (137-145) mmol/L Potassium 4.1 (3.5-5.1) mmol/L Chloride 104 (98-107) mmol/L Carbon Dioxide 30 (22-30) mmol/L Anion Gap 9 mmol/L BUN 15 (7-17) mg/dL Creatinine 0.48 L (0.52-1.04) mg/dL Est GFR (CKD-EPI)AfAm >90 (>60 ml/min/1.73 sqM) Est GFR (CKD-EPI)NonAf >90 (>60 ml/min/1.73 sqM) Glucose 118 H (74-99) mg/dL Calcium 9.0 (8.4-10.2) mg/dL Total Bilirubin 0.6 (0.2-1.3) mg/dL AST 23 (14-36) U/L ALT 24 (9-52) U/L Alkaline Phosphatase 88 (38-126) U/L Troponin I <0.012 (0.000-0.034) ng/mL Total Protein 6.4 (6.3-8.2) g/dL Albumin 3.8 (3.5-5.0) g/dL Amylase 40 (30-110) U/L Lipase 46 (23-300) U/L Urine Color Urine Appearance (Clear) Urine pH (5.0-8.0) Ur Specific [place] (1.001-1.035) Urine Protein (Negative) Urine Glucose (UA) (Negative) Urine Ketones (Negative) Urine Blood (Negative) Urine Nitrite (Negative) Urine Bilirubin (Negative) Urine Urobilinogen (<2.0) mg/dL Ur Leukocyte Esterase (Negative) 08/17/17 Range/Units 13:31 WBC (3.8-10.6) k/uL RBC (3.80-5.40) m/uL Hgb (11.4-16.0) gm/dL Hct (34.0-46.0) % MCV (80.0-100.0) fL MCH (25.0-35.0) pg MCHC (31.0-37.0) g/dL RDW (11.5-15.5) % Plt Count (150-450) k/uL Neutrophils % (Manual) % Band Neutrophils % % Lymphocytes % (Manual) % Monocytes % (Manual) % Eosinophils % (Manual) % Neutrophils # (Manual) (1.3-7.7) k/uL Lymphocytes # (Manual) (1.0-4.8) k/uL Monocytes # (Manual) (0-1.0) k/uL Eosinophils # (Manual) (0-0.7) k/uL Nucleated RBCs (0-0) /100 WBC Manual Slide Review Sodium (137-145) mmol/L Potassium (3.5-5.1) mmol/L Chloride (98-107) mmol/L Carbon Dioxide (22-30) mmol/L Anion Gap mmol/L BUN (7-17) mg/dL Creatinine (0.52-1.04) mg/dL Est GFR (CKD-EPI)AfAm (>60 ml/min/1.73 sqM) Est GFR (CKD-EPI)NonAf (>60 ml/min/1.73 sqM) Glucose (74-99) mg/dL Calcium (8.4-10.2) mg/dL Total Bilirubin (0.2-1.3) mg/dL AST (14-36) U/L ALT (9-52) U/L Alkaline Phosphatase (38-126) U/L Troponin I (0.000-0.034) ng/mL Total Protein (6.3-8.2) g/dL Albumin (3.5-5.0) g/dL Amylase (30-110) U/L Lipase (23-300) U/L Urine Color Yellow Urine Appearance Clear (Clear) Urine pH 5.5 (5.0-8.0) Ur Specific [place] 1.014 (1.001-1.035) Urine Protein Negative (Negative) Urine Glucose (UA) Negative (Negative) Urine Ketones Negative (Negative) Urine Blood Negative (Negative) Urine Nitrite Negative (Negative) Urine Bilirubin Negative (Negative) Urine Urobilinogen <2.0 (<2.0) mg/dL Ur Leukocyte Esterase Negative (Negative) 08/17/17 14:54 EKG shows normal sinus rhythm, ST-T wave inversion showing anterolateral ischemia. Ventricular rate 93 bpm. MI interval 122 ms. QRS duration 82 ms. QT QTc is 364/452 ms. - Radiology Data Radiology results: report reviewed Chest x-ray shows no acute cardio bony process. X-ray of the abdomen shows likely signs of enteritis. Disposition Clinical Impression: Gastroenteritis Disposition: HOME SELF-CARE Condition: Good Instructions: Acute Nausea and Vomiting (ED) Additional Instructions: Patient is have clear liquid diet for the next 24-48 hours and slowly advance of the brought diet, bananas, rice, applesauce and toast. Patient should follow -up with your primary care provider on Sunday. Return to emergency department if any alarming signs or symptoms occur. Prescriptions: Ondansetron Odt [Zofran Odt] 4 mg PO Q8HR PRN #12 tab PRN Reason: Nausea Referrals: Ran Mcgrath MD [Primary Care Provider] - 1-2 days Time of Disposition: 15:38
[2017-08-17 13:20] LABS: ALT 24 U/L (9-52); AST 23 U/L (14-36); Albumin 3.8 g/dL (3.5-5.0); Alkaline Phosphatase 88 U/L (38-126); Amylase 40 U/L (30-110); Anion Gap 9 mmol/L; Blood Urea Nitrogen 15 mg/dL (7-17); Carbon Dioxide 30 mmol/L (22-30); Chloride 104 mmol/L (98-107); Glucose 118 mg/dL (74-99); Lipase 46 U/L (23-300); Potassium 4.1 mmol/L (3.5-5.1); Sodium 143 mmol/L (137-145); Total Bilirubin 0.6 mg/dL (0.2-1.3); Total Protein 6.4 g/dL (6.3-8.2)
[2017-08-17 13:58] LABS: HGB 15.3 gm/dL (11.4-16.0); MCH 31.3 pg (25.0-35.0); MCHC 32.5 g/dL (31.0-37.0); MCV 96.2 fL (80.0-100.0); Mean Platelet Volume 7.2; Platelet Count 274 k/uL (150-450); RBC 4.89 m/uL (3.80-5.40); RDW 14.7 % (11.5-15.5); WBC 8.9 k/uL (3.8-10.6)
--- NOTE | 2017-08-17 14:23 | XR ---
EXAMINATION TYPE: XR chest 2V DATE OF EXAM: 08/17/2017 COMPARISON: Prior chest x-ray 11/27/2016 HISTORY: Nausea and vomiting, pain TECHNIQUE: Frontal and lateral views of the chest are obtained. FINDINGS: There is no focal air space opacity, pleural effusion, or pneumothorax seen. Linear densi ties right upper lobe are stable and likely reflects scarring. The cardiac silhouette size is within normal limits. The osseous structures are intact. IMPRESSION: No acute cardiopulmonary process.
[2017-08-17 14:25] LABS: Appearance,Urine Clear (Clear); Bilirubin,Urine Negative (Negative); Blood,Urine Negative (Negative); Color,Urine Yellow; Glucose,Urine (UA) Negative (Negative); Ketones,Urine Negative (Negative); Leukocyte Esterase,Urine Negative (Negative); PH, Urine 5.5 (5.0-8.0); Protein,Urine Negative (Negative); Specific Gravity,Urine 1.014 (1.001-1.035); Urobilinogen,Urine <2.0 mg/dL (<2.0)
--- NOTE | 2017-08-17 14:25 | XR ---
Abdomen HISTORY: Nausea and vomiting Frontal view of the abdomen on 2 images No comparisons There is a spinal curvature, degenerative disc changes are present in the visualized spine. Lung base s are clear. There is no evident pneumoperitoneum or bowel obstruction. Calcification within the left hemipelvis is felt likely represent phleboliths. There are some air-fluid levels without bowel obstr uction. IMPRESSION: Findings likely represent enteritis, follow-up as indicated.
[2017-08-17 14:52] LABS: Band Neutrophils % 13 %; Nucleated Red Blood Cells 0 /100 WBC (0-0)
[2017-08-17 14:56] LABS: Eosinophils # (M) 0.09 k/uL (0-0.7); Lymphocytes # (M) 0.36 k/uL (1.0-4.8); Neutrophils % (M) 75 %; Total Cells Counted 200
[2017-08-17 16:05] VITALS: BP 120/56; PULSE 102; RESP 15; TEMP 98.5
== END 2017-08-17 16:12 | disposition home or self-care (01) ==
LOC: EC 11:35
DX: K52.9 Noninfective gastroenteritis and colitis, unspecified (principal); K21.9 Gastro-esophageal reflux disease without esophagitis; E78.5 Hyperlipidemia, unspecified; I10 Essential (primary) hypertension; Z85.828 Personal history of other malignant neoplasm of skin; Z79.82 Long term (current) use of aspirin; Z79.899 Other long term (current) drug therapy; Z88.6 Allergy status to analgesic agent; Z88.1 Allergy status to other antibiotic agents; Z88.8 Allergy status to other drugs, medicaments and biological substances
CPT/HCPCS: 36415; 93005; 80053; 82150; 83690; 84484; 85025; 81003; 71046; 74018; 99285; 96374; 96375; 96361 ×3; J2270; J2765

== ENCOUNTER → 2018-03-14 | Outpatient (CLI) | payer MEDICARE, BC ==
--- NOTE | 2018-03-18 10:55 | MM ---
Reason for exam: screening (asymptomatic). Last mammogram was performed 1 year and 2 months ago. History: Patient is postmenopausal. Physical Findings: A clinical breast exam by your physician is recommended on an annual basis and results should be correlated with mammographic findings. MG 3D Screening Mammo W/Cad Bilateral CC and MLO view(s) were taken. Prior study comparison: January 23, 2017, mammogram, performed at [facility]. January 10, 2016, mammogram, performed at [facility]. There are scattered fibroglandular densities. Finding: There are typically benign diffuse/scattered calcifications in both breasts. No suspicious abnormality. No significant changes in finding since January 23, 2017 and January 10, 2016. ASSESSMENT: Benign, BI-RAD 2 RECOMMENDATION: Routine screening mammogram of both breasts in 1 year.
== END | disposition home or self-care (01) ==
LOC: RADMAMWWP 12:43
PROVIDERS: ATTEND Family Medicine
DX: Z12.31 Encounter for screening mammogram for malignant neoplasm of breast (principal)
CPT/HCPCS: 77063; 77067

== ENCOUNTER → 2018-04-15 | Outpatient (CLI) | payer MEDICARE, BC ==
[2018-04-15 11:14] LABS: Basophils % (A) 1 %; Eosinophils # (A) 0.1 k/uL (0-0.7); Eosinophils % (A) 3 %; HCT 45.1 % (34.0-46.0); HGB 14.3 gm/dL (11.4-16.0); Lymphocytes # (A) 1.1 k/uL (1.0-4.8); Lymphocytes % (A) 23 %; MCH 31.2 pg (25.0-35.0); MCHC 31.7 g/dL (31.0-37.0); MCV 98.2 fL (80.0-100.0); Mean Platelet Volume 6.4; Monocytes # (A) 0.3 k/uL (0-1.0); Monocytes % (A) 7 %; Neutrophils # (A) 3.2 k/uL (1.3-7.7); Neutrophils % (A) 64 %; Platelet Count 268 k/uL (150-450); RBC 4.59 m/uL (3.80-5.40); RDW 14.4 % (11.5-15.5); WBC 4.9 k/uL (3.8-10.6)
[2018-04-15 16:23] LABS: Albumin 4.4 g/dL (3.80-4.90); Albumin/Globulin Ratio 2.44 (1.20-2.10); Anion Gap 4.6 mmol/L (4.00-12.00); Calcium 9.5 mg/dL (8.7-10.3); Carbon Dioxide 33.4 mmol/L (21.6-31.8); Globulin 1.8 g/dL (2.1-3.7); LDL Cholesterol,Calculated 91.8 mg/dL (0.0-131.0); Magnesium 1.6 mg/dL (1.5-2.4); Potassium 4.4 mmol/L (3.5-5.5); Total Bilirubin 0.9 mg/dL (0.3-1.2); Total Protein 6.2 g/dL (6.2-8.2); VLDL Calculation 25.2 mg/dL (5.00-40.00)
== END | disposition home or self-care (01) ==
LOC: LABWHC1 09:56
PROVIDERS: ATTEND Family Medicine
DX: Z00.00 Encounter for general adult medical examination without abnormal findings (principal); E78.5 Hyperlipidemia, unspecified; R25.1 Tremor, unspecified; I10 Essential (primary) hypertension
CPT/HCPCS: 36415; 80053; 80061; 82607; 83735; 84443; 85025

== ENCOUNTER → 2018-06-26 | Outpatient (CLI) | payer MEDICARE, BC ==
--- NOTE | 2018-06-26 16:41 | BD ---
EXAMINATION TYPE: Axial Bone Density DATE OF EXAM: 06/26/2018 COMPARISON: NONE CLINICAL HISTORY: Height: 60 IN Weight: 185 LBS FRAX RISK QUESTIONS: Family History (Parent hip fracture): YES MOTHER History of Fracture in Adulthood: YES TAILBONE AGE 59 ; TOE AGE 71; THUMB AGE 59; FOOT AGE 66 RISK FACTORS HISTORY OF: Family History of Osteoporosis: YES MOTHER Active: YES Postmenopausal woman: AGE 55 Take estrogen and/or progesterone medications: NOT NOW How long: AGE 56 - 58 MEDICATIONS: Additional Medications: CALCIUM, VIT D, FISH OIL, LUTEINE, MULTI VITAMIN, BLOOD PRESSURE MEDS, PREVAS TATIN, BABY ASPIRIN, BIOPRIN, CURCUMIN EXAM MEASUREMENTS: Bone mineral densitometry was performed using the eBIZ.mobility System. Bone mineral density as measured about the Lumbar spine is: ----- L1-L4(G/cm2): 1.382 T Score Values are as follows: ----- L2: 2.7 ----- L3: 2.6 ----- L4: 1.8 ----- L1-L4: 1.7 Bone mineral density BASELINE Bone mineral density about the R hip (g/cm2): 0.762 Bone mineral density about the L hip (g/cm2): 0.722 T Score values are as follows: -----R Neck: -2.3 -----L Neck: -2.0 -----R Total: -1.2 -----L Total: -1.0 Bone mineral density BASELINE Bone mineral density about the R Wrist (g/cm2): Bone mineral density about the L Wrist (g/cm2): T Score values are as follows: -----Dist. R+U: -----Prox. R+U: -----Radius total: Bone mineral density has: % since study of: IMPRESSION: Osteopenia (T Score between -2.5 and -1). There is slightly increased risk of fracture and the patient may be considered for treatment. Re-Screen 2-5 years. NOTE: T-SCORE=SD OF THE YOUNG ADULT MEAN.
== END | disposition home or self-care (01) ==
LOC: RADBDWWP 16:01
PROVIDERS: ATTEND Family Medicine
DX: Z13.820 Encounter for screening for osteoporosis (principal); M85.88 Other specified disorders of bone density and structure, other site
CPT/HCPCS: 77080

== ENCOUNTER 2018-08-30 12:32 | Emergency (ER) | payer MEDICARE, BC ==
[2018-08-30 12:42] VITALS: RESP 18
[2018-08-30] MEDS ORDERED: SODIUM CHLORIDE 0.9% 1,000 ML IV ONE (12:59)
[2018-08-30] MEDS ORDERED: ACETAMINOPHEN TAB 500 MG TAB PO STA (13:00)
--- NOTE | 2018-08-30 13:18 | ED ---
Fever HPI - General Chief Complaint: Fever Stated Complaint: Vomiting, diarrhea,fever Time Seen by Provider: 08/30/18 12:42 Source: patient, EMS, RN notes reviewed Mode of arrival: EMS Limitations: no limitations - History of Present Illness Initial Comments: This a 78-year-old female presents emergency department via EMS chief complaint fever cough congestion. Patient states symptoms started a few days ago and progressively worsened. Patient states she developed some nausea today. Patient denies any shortness breath or chest pain. She states she does have a cough which is nonproductive. She has not taken any recent Tylenol or Motrin. She has no kidney disease no reason she cannot take ibuprofen. Patient states that she was given Zofran by EMS which has helped her nausea. She has no abdominal pain. Denies any history of COPD or asthma. Patient does take medications for hyperlipidemia, hypertension and GERD. - Related Data Home Medications Medication Instructions Recorded Confirmed Pravastatin Sodium [Pravachol] 80 mg PO HS 11/05/14 08/30/18 ALPRAZolam [Xanax] 0.25 mg PO BID PRN 08/17/17 08/30/18 Chlorthalidone [Hygroten] 50 mg PO DAILY 08/30/18 08/30/18 Lisinopril [Zestril] 10 mg PO DAILY 08/30/18 08/30/18 Nitrofurantoin Monohyd/M-Cryst 100 mg PO Q12HR 08/30/18 08/30/18 [Macrobid] Previous Rx's Medication Instructions Recorded Benzonatate [Tessalon Perles] 100 mg PO TID PRN #15 capsule 08/30/18 Ondansetron Odt [Zofran Odt] 4 mg PO Q8HR PRN #10 tab 08/30/18 Allergies Allergy/AdvReac Type Severity Reaction Status Date / Time aspirin AdvReac Burning Verified 08/30/18 12:48 sensation in stomach. Can only take Enteric Coated. erythromycin base AdvReac Abdominal Verified 08/30/18 12:48 Pain Estrogen Shot Preservative Allergy Swelling Uncoded 08/30/18 12:34 Review of Systems ROS Statement: Those systems with pertinent positive or pertinent negative responses have been documented in the HPI. ROS Other: All systems not noted in ROS Statement are negative. Past Medical History Past Medical History: Cancer, GERD/Reflux, Hyperlipidemia, Hypertension, Osteoarthritis (OA) Additional Past Medical History / Comment(s): skin cancer History of Any Multi-Drug Resistant Organisms: None Reported Past Surgical History: Section, Hysterectomy, Tonsillectomy, Tubal Ligation Past Anesthesia/Blood Transfusion Reactions: No Reported Reaction Past Psychological History: Anxiety Smoking Status: Never smoker Past Alcohol Use History: Rare Past Drug Use History: None Reported - Past Family History Father Family Medical History: Cancer General Exam Limitations: no limitations General appearance: alert, in no apparent distress Head exam: Present: atraumatic, normocephalic, normal inspection Eye exam: Present: normal appearance, PERRL, EOMI. Absent: scleral icterus, conjunctival injection, periorbital swelling ENT exam: Present: normal exam, normal oropharynx, mucous membranes moist, TM's normal bilaterally, normal external ear exam Neck exam: Present: normal inspection, full ROM. Absent: tenderness, meningi smus, lymphadenopathy Respiratory exam: Present: normal lung sounds bilaterally. Absent: respiratory distress, wheezes, rales, rhonchi, stridor Cardiovascular Exam: Present: normal rhythm, tachycardia, normal heart sounds. Absent: systolic murmur, diastolic murmur, rubs, gallop, clicks GI/Abdominal exam: Present: soft, normal bowel sounds. Absent: distended, tenderness, guarding, rebound, rigid Neurological exam: Present: alert, oriented X3, CN II-XII intact Skin exam: Present: warm, dry, intact, normal color. Absent: rash Course Vital Signs 08/30/18 12:34 Temperature 102.0 F H Pulse Rate 106 H Respiratory 18 Rate Blood Pressure 171/75 O2 Sat by Pulse 95 Oximetry Medical Decision Making - Medical Decision Making 78-year-old female presented for fever cough congestion nausea vomiting. Patient is influenza a positive. Chest x-ray unremarkable. Patient's improved after IV fluids, Zofran and Tylenol. Patient lab work is unremarkable urina lysis unremarkable. Patient will be discharge patient agrees with this plan and is comfortable discharge. - Lab Data Result diagrams: 08/30/18 13:10 08/30/18 13:10 Lab Results 08/30/18 08/30/18 08/30/18 Range/Units 13:10 13:10 13:10 WBC 8.0 (3.8-10.6) k/uL RBC 4.56 (3.80-5.40) m/uL Hgb 13.6 (11.4-16.0) gm/dL Hct 42.8 (34.0-46.0) % MCV 94.0 (80.0-100.0) fL MCH 29.7 (25.0-35.0) pg MCHC 31.7 (31.0-37.0) g/dL RDW 15.6 H (11.5-15.5) % Plt Count 213 (150-450) k/uL Neutrophils % 87 % Lymphocytes % 4 % Monocytes % 6 % Eosinophils % 1 % Basophils % 0 % Neutrophils # 6.9 (1.3-7.7) k/uL Lymphocytes # 0.4 L (1.0-4.8) k/uL Monocytes # 0.5 (0-1.0) k/uL Eosinophils # 0.1 (0-0.7) k/uL Basophils # 0.0 (0-0.2) k/uL Sodium 137 (137-145) mmol/L Potassium 3.8 (3.5-5.1) mmol/L Chloride 99 (98-107) mmol/L Carbon Dioxide 30 (22-30) mmol/L Anion Gap 8 mmol/L BUN 9 (7-17) mg/dL Creatinine 0.49 L (0.52-1.04) mg/dL Est GFR (CKD-EPI)AfAm >90 (>60 ml/min/1.73 sqM) Est GFR (CKD-EPI)NonAf >90 (>60 ml/min/1.73 sqM) Glucose 103 H (74-99) mg/dL Calcium 9.2 (8.4-10.2) mg/dL Total Bilirubin 0.6 (0.2-1.3) mg/dL AST 31 (14-36) U/L ALT 30 (9-52) U/L Alkaline Phosphatase 81 (38-126) U/L Total Protein 6.6 (6.3-8.2) g/dL Albumin 4.0 (3.5-5.0) g/dL Urine Color Urine Appearance (Clear) Urine pH (5.0-8.0) Ur Specific [place] (1.001-1.035) Urine Protein (Negative) Urine Glucose (UA) (Negative) Urine Ketones (Negative) Urine Blood (Negative) Urine Nitrite (Negative) Urine Bilirubin (Negative) Urine Urobilinogen (<2.0) mg/dL Ur Leukocyte Esterase (Negative) Influenza Type A RNA Detected H (Not Detectd) Influenza Type B (PCR) Not Detected (Not Detectd) 08/30/18 Range/Units 13:10 WBC (3.8-10.6) k/uL RBC (3.80-5.40) m/uL Hgb (11.4-16.0) gm/dL Hct (34.0-46.0) % MCV (80.0-100.0) fL MCH (25.0-35.0) pg MCHC (31.0-37.0) g/dL RDW (11.5-15.5) % Plt Count (150-450) k/uL Neutrophils % % Lymphocytes % % Monocytes % % Eosinophils % % Basophils % % Neutrophils # (1.3-7.7) k/uL Lymphocytes # (1.0-4.8) k/uL Monocytes # (0-1.0) k/uL Eosinophils # (0-0.7) k/uL Basophils # (0-0.2) k/uL Sodium (137-145) mmol/L Potassium (3.5-5.1) mmol/L Chloride (98-107) mmol/L Carbon Dioxide (22-30) mmol/L Anion Gap mmol/L BUN (7-17) mg/dL Creatinine (0.52-1.04) mg/dL Est GFR (CKD-EPI)AfAm (>60 ml/min/1.73 sqM) Est GFR (CKD-EPI)NonAf (>60 ml/min/1.73 sqM) Glucose (74-99) mg/dL Calcium (8.4-10.2) mg/dL Total Bilirubin (0.2-1.3) mg/dL AST (14-36) U/L ALT (9-52) U/L Alkaline Phosphatase (38-126) U/L Total Protein (6.3-8.2) g/dL Albumin (3.5-5.0) g/dL Urine Color Light Yellow Urine Appearance Clear (Clear) Urine pH 6.5 (5.0-8.0) Ur Specific [place] 1.003 (1.001-1.035) Urine Protein Negative (Negative) Urine Glucose (UA) Negative (Negative) Urine Ketones Negative (Negative) Urine Blood Negative (Negative) Urine Nitrite Negative (Negative) Urine Bilirubin Negative (Negative) Urine Urobilinogen <2.0 (<2.0) mg/dL Ur Leukocyte Esterase Negative (Negative) Influenza Type A RNA (Not Detectd) Influenza Type B (PCR) (Not Detectd) Disposition Clinical Impression: Influenza Disposition: HOME SELF-CARE Condition: Stable Instructions (If sedation given, give patient instructions): Influenza (ED) Additional Instructions: Please return to the Emergency Department if symptoms worsen or any other concerns. Prescriptions: Benzonatate [Tessalon Perles] 100 mg PO TID PRN #15 capsule PRN Reason: Cough Ondansetron Odt [Zofran Odt] 4 mg PO Q8HR PRN #10 tab PRN Reason: Nausea Is patient prescribed a controlled substance at d/c from ED?: No Referrals: Ashley Vides MD [Primary Care Provider] - 1-2 days
[2018-08-30] MEDS: IBUPROFEN 600 MG TAB PO STA ×2 (13:28→13:30)
--- NOTE | 2018-08-30 13:28 | XR ---
EXAMINATION TYPE: XR chest 2V DATE OF EXAM: 08/30/2018 COMPARISON: Prior chest x-ray 08/17/2017 HISTORY: Cough and fever TECHNIQUE: Frontal and lateral views of the chest are obtained. FINDINGS: There is no focal air space opacity, pleural effusion, or pneumothorax seen. The cardiac silhouette size is within normal limits. There is increased AP diameter of the chest. Aorta is dense. The osseous structures are intact. IMPRESSION: No acute cardiopulmonary process.
[2018-08-30] MEDS ORDERED: KETOROLAC 30 MG/ML 1 ML VIAL IVP STA (13:40)
[2018-08-30 13:50] LABS: Basophils % (A) 0 %; Eosinophils # (A) 0.1 k/uL (0-0.7); Eosinophils % (A) 1 %; HCT 42.8 % (34.0-46.0); HGB 13.6 gm/dL (11.4-16.0); Lymphocytes # (A) 0.4 k/uL (1.0-4.8); Lymphocytes % (A) 4 %; MCH 29.7 pg (25.0-35.0); MCHC 31.7 g/dL (31.0-37.0); Mean Platelet Volume 7.1; Monocytes # (A) 0.5 k/uL (0-1.0); Monocytes % (A) 6 %; Neutrophils # (A) 6.9 k/uL (1.3-7.7); Neutrophils % (A) 87 %; Platelet Count 213 k/uL (150-450); RBC 4.56 m/uL (3.80-5.40); RDW 15.6 % (11.5-15.5)
[2018-08-30 13:57] LABS: ALT 30 U/L (9-52); AST 31 U/L (14-36); Alkaline Phosphatase 81 U/L (38-126); Anion Gap 8 mmol/L; Blood Urea Nitrogen 9 mg/dL (7-17); Calcium 9.2 mg/dL (8.4-10.2); Carbon Dioxide 30 mmol/L (22-30); Chloride 99 mmol/L (98-107); Glucose 103 mg/dL (74-99); Potassium 3.8 mmol/L (3.5-5.1); Sodium 137 mmol/L (137-145); Total Bilirubin 0.6 mg/dL (0.2-1.3); Total Protein 6.6 g/dL (6.3-8.2)
[2018-08-30 13:58] LABS: Appearance,Urine Clear (Clear); Bilirubin,Urine Negative (Negative); Blood,Urine Negative (Negative); Color,Urine Light Yellow; Glucose,Urine (UA) Negative (Negative); Ketones,Urine Negative (Negative); Leukocyte Esterase,Urine Negative (Negative); Nitrite,Urine Negative (Negative); PH, Urine 6.5 (5.0-8.0); Protein,Urine Negative (Negative); Specific Gravity,Urine 1.003 (1.001-1.035); Urobilinogen,Urine <2.0 mg/dL (<2.0)
[2018-08-30 14:55] VITALS: BP 114/57; PULSE 90; TEMP 101.8
== END 2018-08-30 14:54 | disposition home or self-care (01) ==
LOC: EC 12:32
DX: J10.1 Influenza due to other identified influenza virus with other respiratory manifestations (principal); R00.0 Tachycardia, unspecified; R11.2 Nausea with vomiting, unspecified; E78.5 Hyperlipidemia, unspecified; I10 Essential (primary) hypertension; K21.9 Gastro-esophageal reflux disease without esophagitis; Z88.1 Allergy status to other antibiotic agents; Z88.6 Allergy status to analgesic agent; Z88.8 Allergy status to other drugs, medicaments and biological substances; Z79.899 Other long term (current) drug therapy; Z85.828 Personal history of other malignant neoplasm of skin; Z90.89 Acquired absence of other organs
CPT/HCPCS: 36415; 80053; 85025; 81003; 87502; 71046; 99284; 96374; 96361; J1885

== ENCOUNTER → 2018-12-26 | Outpatient (CLI) | payer MEDICARE, BC ==
[2018-12-26 16:09] LABS: Basophils % (A) 1 %; Eosinophils # (A) 0.2 k/uL (0-0.7); Eosinophils % (A) 2 %; HCT 42.1 % (34.0-46.0); HGB 13.2 gm/dL (11.4-16.0); Lymphocytes # (A) 1.3 k/uL (1.0-4.8); Lymphocytes % (A) 21 %; MCH 29.9 pg (25.0-35.0); MCHC 31.3 g/dL (31.0-37.0); MCV 95.5 fL (80.0-100.0); Mean Platelet Volume 6.5; Monocytes # (A) 0.4 k/uL (0-1.0); Monocytes % (A) 5 %; Neutrophils # (A) 4.4 k/uL (1.3-7.7); Neutrophils % (A) 68 %; Platelet Count 304 k/uL (150-450); RBC 4.41 m/uL (3.80-5.40); RDW 14.4 % (11.5-15.5); WBC 6.5 k/uL (3.8-10.6)
[2018-12-26 16:20] LABS: Prothrombin Time 10.5 sec (9.0-12.0)
[2018-12-26 16:24] LABS: Potassium 3.6 mmol/L (3.5-5.1)
== END | disposition home or self-care (01) ==
LOC: LABWHC1 14:59
PROVIDERS: ATTEND Orthopaedic Surgery
DX: Z01.812 Encounter for preprocedural laboratory examination (principal); M17.11 Unilateral primary osteoarthritis, right knee; Z79.01 Long term (current) use of anticoagulants
CPT/HCPCS: 36415; 80051; 85025; 85610; 87070

== ENCOUNTER → 2019-01-24 | Outpatient (CLI) | payer MEDICARE, BC ==
--- NOTE | 2019-01-24 15:57 | US ---
EXAMINATION TYPE: US carotid duplex BILAT DATE OF EXAM: 01/24/2019 COMPARISON: NONE CLINICAL HISTORY: I77.9 CAROTID ARTERY DISEASE,H53.9 TRANSIENT VISION DISTURB. PAD, left visual dist urbance EXAM MEASUREMENTS: RIGHT: Peak Systolic Velocity (PSV) cm/sec ----- Right CCA: 66.7 ----- Right ICA: 108.3 ----- Right ECA: 64.5 ICA/CCA ratio: 1.6 RIGHT: End Diastole cm/sec ----- Right CCA: 16.1 ----- Right ICA: 29.3 ----- Right ECA: 10.6 LEFT: Peak Systolic Velocity (PSV) cm/sec ----- Left CCA: 66.9 ----- Left ICA: 125.5 ----- Left ECA: 68.9 ICA/CCA ratio: 1.9 LEFT: End Diastole cm/sec ----- Left CCA: 14.5 ----- Left ICA: 38.2 ----- Left ECA: 6.2 VERTEBRALS (direction of flow): Right Vertebral: Antegrade Left Vertebral: Antegrade Rhythm: Normal Moderate plaque noted bilateral bifurcations. IMPRESSION: Borderline stenosis of 50-69% within the left internal carotid artery. Moderate atherosclerosis is al so noted within the right carotid bulb without elevated velocity. CTA neck could more accurately asse ss degree of stenosis. Criteria for Assigning % of Stenosis / Diameter reduction (Estimation based on the indirect measurements of the internal carotid artery velocities (ICA PSV). 1. Normal (no stenosis)=ICA PSV < 125 cm/s: ratio < 2.0: ICA EDV<40 cm/s. 2. Less than 50% stenosis=ICA PSV < 125 cm/s: ratio < 2.0: ICA EDV<40 cm/s. 3. 50 to 69% stenosis=ICA PSV of 125 to 230 cm/s: ration 2.0 ? 4.0: ICA EDV 40-100 cm/s. 4. Greater than 70% stenosis to near occlusion= ICA PSV > 230 cm/s: ratio > 4.0: ICA EDV > 100 cm/s. 5. Near occlusion= ICA PSV velocities may be low or undetectable: variable ratio and ICA EDV. 6. Total occlusion=unable to detect flow.
== END | disposition home or self-care (01) ==
LOC: RADUSWWP 15:02
PROVIDERS: ATTEND Family Medicine
DX: I65.23 Occlusion and stenosis of bilateral carotid arteries (principal)
CPT/HCPCS: 93880

== ENCOUNTER → 2019-03-05 | Outpatient (CLI) | payer MEDICARE, BC ==
[2019-03-05 15:11] LABS: Anisocytosis Slight; Basophils % (A) 1 %; Eosinophils # (A) 0.2 k/uL (0-0.7); Eosinophils % (A) 3 %; HCT 41.7 % (34.0-46.0); HGB 13.6 gm/dL (11.4-16.0); Lymphocytes # (A) 1.5 k/uL (1.0-4.8); Lymphocytes % (A) 22 %; MCH 31.8 pg (25.0-35.0); MCHC 32.7 g/dL (31.0-37.0); MCV 97.2 fL (80.0-100.0); Mean Platelet Volume 7.1; Monocytes # (A) 0.4 k/uL (0-1.0); Monocytes % (A) 5 %; Neutrophils # (A) 4.6 k/uL (1.3-7.7); Neutrophils % (A) 68 %; Platelet Count 301 k/uL (150-450); RDW 16.4 % (11.5-15.5); WBC 6.8 k/uL (3.8-10.6)
[2019-03-05 15:18] LABS: Prothrombin Time 10.4 sec (9.0-12.0)
[2019-03-05 15:22] LABS: Potassium 4.1 mmol/L (3.5-5.1)
== END | disposition home or self-care (01) ==
LOC: LABPAT 14:27
PROVIDERS: ATTEND Orthopaedic Surgery
DX: Z01.812 Encounter for preprocedural laboratory examination (principal); M17.11 Unilateral primary osteoarthritis, right knee
CPT/HCPCS: 36415; 80051; 85025; 85610

== ENCOUNTER 2019-03-24 10:52 | Inpatient (IN) | payer MEDICARE, BC ==
[2019-03-17 09:56] VITALS: BMI 36.1
--- NOTE | 2019-03-23 17:20 | HP ---
HISTORY AND PHYSICAL REASON FOR ADMISSION: Surgery 03/24/2019 Lena Jalloh is a 79-year-old patient seen with symptomatic right knee osteoarthritis. We discussed treatment options. She elected to proceed with right total knee arthroplasty. Consent was obtained. Cardiac clearance was provided by Dr. Grace. PAST MEDICAL HISTORY: Cardiovascular disease, hypertension, hyperlipidemia. PAST SURGICAL HISTORY: Noncontributory. MEDICATIONS: Lasix, lisinopril, pravastatin, potassium. ALLERGIES: ERYTHROMYCIN. SOCIAL HISTORY: She denies tobacco use. PHYSICAL EXAMINATION: Evaluation of the right knee: Range of motion is 0 to 125 degrees. Tenderness along the medial joint line. Crepitus medial patellofemoral compartments with range of motion. Ligaments stable. Hip rotation without pain. Distal neurovascular exam is intact. RADIOGRAPHS: Radiographs of the right knee reveal severe osteoarthritic changes. IMPRESSION: 1. Right knee osteoarthritis. 2. Hypertension. 3. Hyperlipidemia. PLAN: Right total knee arthroplasty. Surgery scheduled for 03/24/2019. MMODL / IJN: [id number] /
[~2019-03-24 10:52] MED LIST: ACETAMINOPHEN TAB 500 MG TAB PO ONE; HYDROmorphone 0.5 MG/0.5 ML SYRINGE IVP PRN; LIDOCAINE 1% 20 ML VIAL (10MG/ML) FOR IV START INTRADERMA PRN; MELOXICAM 7.5 MG TAB PO ONE; ONDANSETRON 4 MG/2 ML VIAL IVP ONE; ONDANSETRON 4 MG/2 ML VIAL IVP PRN; ROPIVACAINE 246.25 MG, EPINEPHrine 0.5 MG, KETOROLAC 30 MG, cloNIDine HCL/PF 80 MCG, WA... MISCELLANE ONE; TRANEXAMIC ACID 1,000 MG in SODIUM CHLORIDE 0.9% 100 ML IVPB ONE
[2019-03-24] MEDS: LACTATED RINGERS 1,000 ML IV SCH ×2 (11:22→17:29)
[2019-03-24] MEDS ORDERED: MIDAZOLAM 2 MG/2 ML VIAL IV ONE (11:59)
[2019-03-24] MEDS ORDERED: ROPIVACAINE 0.2%-NS ON-Q PUMP 1,090 MG, EMPTY PAIN BALL 1 EACH MISCELLANE PRN (12:35)
[2019-03-24] MEDS ORDERED: TRANEXAMIC ACID 1,000 MG/10 ML VIAL ONE (12:54)
[2019-03-24] MEDS ORDERED: SODIUM CHLORIDE 0.9% 100 ML BAG ONE (12:54)
[2019-03-24] MEDS ORDERED: fentaNYL (PF) 50 MCG/ML 2 ML AMP ONE (12:54)
[2019-03-24] MEDS ORDERED: diphenhydrAMINE 50 MG/ML 1 ML VIAL ONE (12:54)
[2019-03-24] MEDS ORDERED: MIDAZOLAM 2 MG/2 ML VIAL ONE (12:54)
[2019-03-24] MEDS ORDERED: ceFAZolin 3,000 MG in SODIUM CHLORIDE 0.9% IRRIGATIO 3,000 ML IRRIGATION ONE (13:27)
[2019-03-24] MEDS ORDERED: NALOXONE 0.4 MG/ML 1 ML VIAL IV PRN (14:34)
[2019-03-24] MEDS ORDERED: HYDROmorphone 0.5 MG/0.5 ML SYRINGE IVP PRN ×3 (14:34)
[2019-03-24] MEDS ORDERED: MAGNESIUM HYDROXIDE 2,400 MG/10 ML CUP PO PRN (14:34)
[2019-03-24] MEDS ORDERED: ONDANSETRON 4 MG/2 ML VIAL IVP PRN (14:34)
--- NOTE | 2019-03-24 14:34 | P.OP ---
Date of Procedure: 03/24/19 Preoperative Diagnosis: Right knee osteoarthritis Postoperative Diagnosis: Right knee osteoarthritis Procedure(s) Performed: Right total knee arthroplasty Implants: 1. Depuy attune size 6 right cruciate retaining cemented femur 2. Depuy attune size 5 fixed bearing cemented tibial baseplate 3. Depuy attune size 6 fixed bearing cruciate retaining 5 mm polyethylene tibial insert 4. Depuy attune 38 mm all polyethylene cemented patella Anesthesia: regional (Adductor canal catheter), local, spinal Surgeon: Bony Rodriguez Supervisor Rose Grading #1: Mehrdad Hayden Estimated Blood Loss (ml): 25 Pathology: other (Bone) Condition: stable Disposition: PACU Indications for Procedure: 79-year-old patient seen with symptomatic right knee osteoarthritis. After treatment options were discussed, she elected to proceed with total knee ar throplasty. Operative Findings: See description of procedure Description of Procedure: Patient was taken to the operative suite after having an adductor canal catheter placed by the department of anesthesia for postoperative pain management. Patient underwent a spinal anesthetic by the department of anesthesia. Patient was given preoperative IV intake antibiotics and TXA. A well-padded tourniquet was placed about the right lower extremity. The lower extremity was then prepped and draped in the normal sterile orthopedic fashion. The extremity was elevated, a tourniquet was insufflated to 300. A standard anterior incision was made sharply through skin. Dissection was taken down through the subcutaneous soft tissues down to the extensor mechanism. A medial arthrotomy was performed, patella was everted and knee was flexed. There was advanced osteoarthritis noted. I introduced my distal intramedullary femoral drill. I then introduced the distal femoral cutting jig. Edinson KLEIN secured the cutting jig with 2 pins. I held retractors in position while Edinson KLEIN performed the distal femoral resection through the guide area we now removed her distal femoral cutting guide. We now placed our 4-in-1 femoral cutting block and positioned and it was secured with 2 pins by Edinson KLEIN while I held the block in position. The distal femoral finishing was now completed. A proximal tibial cutting guide was positioned. I held the guide in the appropriate position with both hands well Edinson KLEIN inserted stabilizing pins into the guide. Proximal tibial cut was made. We now placed a trial femoral component into position, along with an appropriate size tibial tray and insert. We now took the knee through range of motion and had full extension good flexion and good overall soft tissue balance noted. The patella was everted and stabilized with 2 towel clips held by Edinson KLEIN while I performed a flush with patellar quad tendon utilizing a fresh sawblade. We templated the patella, appropriate drill holes were made. An appropriate trial patella was positioned, knee was taken through full range of motion with the patella tracking very nicely. The trial patella was removed. Drill holes were made through the femoral component. All trial components were removed after marking off the appropriate rotation of the tibia. Retractors were now positioned along the proximal tibia. An appropriate keel punch was made with the appropriate size tibial guide by myself on Edinson KLEIN assisted by holding retractors. At this point appropriate size implants were chosen and opened. The joint was irrigated copiously with pulse lavage mechanical irrigation. The posterior capsule was infiltrated with local analgesic. The wound was irrigated with pulse lavage mechanical irrigation. We mixed antibiotic methylmethacrylate. We placed the knee into flexion. We placed multiple retractors assisted by Edinson KLEIN to expose the proximal tibia. Once the methyl methacrylate was ready, the tibial component was cemented into place removing any excess methylmethacrylate form by both myself and Edinson KLEIN. The femoral component was cemented into place removing the removing any excess methylmethacrylate performed by both myself and Edinson KLEIN. We then inserted the appropriate size polyethylene tibial insert. We made sure that it was locked into position. We took the knee into full extension, and then back in a flexion making sure we had removed any excess methylmethacrylate. The patellar component was then cemented down and secured with clamp. Excess methylmethacrylate removed. We kept the knee in full extension, patellar clamp in position until methylmethacrylate had hardened. Once it had hardened the patellar clamp was removed. The knee was taken through full range of motion. The patella tracked nicely. There was good soft tissue balancing. The tourniquet was now released. Additional hemostasis was achieved via electrocautery. A second gram of TXA was given. The wound again was irrigated with pulse lavage mechanical irrigation. The superficial soft tissues were infiltrated local analgesic. The extensor mechanism was repaired with Vicryl. We checked the repair with range of motion and it was stable. The subcutaneous soft tissues were repaired with Vicryl in layers. The skin was approximated with pernio/Dermabond. Sterile dressings were applied followed by loose web roll and Rahat bandage. The patient was transferred to a bed, and taken to recovery in stable and satisfactory condition. Edinson KLEIN assisted with this complex procedure.
[2019-03-24] MEDS ORDERED: LACTATED RINGERS 1,000 ML IV ONE (14:46)
--- NOTE | 2019-03-24 15:08 | XR ---
EXAMINATION TYPE: XR knee limited RT DATE OF EXAM: 03/24/2019 CLINICAL HISTORY: Right knee pain and arthritis status post total knee replacement. TECHNIQUE: Portable AP and crosstable lateral views of the right knee are obtained immediately posto peratively. COMPARISON: None FINDINGS: Metallic hardware from total right knee arthroplasty is seen and appears satisfactory in a lignment and position. There is evidence of recent surgery with diffuse subcutaneous gas and soft ti ssue swelling noted. IMPRESSION: METALLIC HARDWARE FROM TOTAL RIGHT KNEE ARTHROPLASTY IS SATISFACTORY IN ALIGNMENT.
[2019-03-24] MEDS: SODIUM CHLORIDE 0.9% 1,000 ML IV SCH (17:28)
--- NOTE | 2019-03-24 19:30 | P.ANPRN ---
Procedure Note - Anesthesia - Nerve Block Performed Right Adductor Canal Infusion Time Out Performed: Yes Date of Procedure: 03/24/19 Procedure Start Time: 11:59 Procedure Stop Time: 12:09 Location of Patient Procedure: PreOp Indication: Acute Post-Operative Pain, Requested by Surgeon Sedation Type: Sedate with meaningful contact maintained Preparation: Sterile Prep, Sterile Dressing Position: Supine Catheter: Indwelling Needle Types: Pajunk Needle Gauge: 21 Ultrasound used to visualize needle placement: Yes Ultrasound used to observe medication spread: Yes Blood Aspirated: No Pain Paresthesia on Injection Noted: No Resistance on Injection: Normal Image Stored and Saved: Yes Events: Uneventful and Well Tolerated (ropi .5% 20cc)
--- NOTE | 2019-03-24 23:33 | P.CONS ---
History of Present Illness - Reason for Consult Consult date: 03/24/19 medical management post op Requesting physician: Bony Rodriguez - Chief Complaint scheduled right knee arthroplasty - History of Present Illness 79-year-old female with history of hypertension arthritis Patient presented today for scheduled right total knee arthroplasty due to severe advanced degenerative joint disease. Patient tolerated procedure well with no observed immediate, patient postoperatively denies any chest pain trouble breathing fevers or chills. Reports that pain is well tolerated. She tolerated by mouth intake. And passed urine. Patient otherwise doing well I reviewed her medications. Review of Systems Pertinent positives as noted in HPI. All other systems were reviewed and are negative Past Medical History Past Medical History: Cancer, GERD/Reflux, Hyperlipidemia, Hypertension, Osteoarthritis (OA), Vascular Disorder Additional Past Medical History / Comment(s): skin cancer, PVD, neuropathy, ocular migraines, surgery was [facility]ched[facility]. changes since then History of Any Multi-Drug Resistant Organisms: None Reported Past Surgical History: Section, Hysterectomy, Tonsillectomy, Tubal Ligation Additional Past Surgical History / Comment(s): cataracts removed, Moh's procedure to remove skin cancer Past Anesthesia/Blood Transfusion Reactions: No Reported Reaction Past Psychological History: Anxiety Smoking Status: Never smoker Past Alcohol Use History: Rare Past Drug Use History: None Reported - Past Family History Father Family Medical History: Cancer Medications and Allergies Home Medications Medication Instructions Recorded Confirmed Type Pravastatin Sodium [Pravachol] 80 mg PO HS 11/05/14 03/24/19 History Chlorthalidone [Hygroten] 50 mg PO DAILY 08/30/18 03/24/19 History Lisinopril [Zestril] 10 mg PO DAILY 08/30/18 03/24/19 History Aspirin [Adult Low Dose Aspirin EC] 81 mg PO DAILY 01/06/19 03/24/19 History Calcium Carbonate [Calcium] 600 mg PO BID 01/06/19 03/24/19 History Cholecalciferol (Vitamin D3) 5,000 unit PO DAILY 01/06/19 03/24/19 History [Vitamin D3] Lutein 25 mg PO DAILY 01/06/19 03/24/19 History Multivitamins, Thera [Multivitamin 1 tab PO DAILY 01/06/19 03/24/19 History (formulary)] [place]-3 Fatty Acids/Fish Oil [Fish 1,400 each PO DAILY 01/06/19 03/24/19 History Oil 1,000 mg Softgel] Omeprazole [PriLOSEC] 20 mg PO AC-BRKFST 01/06/19 03/24/19 History Allergies Allergy/AdvReac Type Severity Reaction Status Date / Time alprazolam [From Xanax] AdvReac Unknown SPEECH Verified 03/24/19 11:07 SLURRED, DIFFICULTY WRITING aspirin AdvReac Burning Verified 03/24/19 11:07 sensation in stomach. Can only take Enteric Coated. erythromycin base AdvReac Abdominal Verified 03/24/19 11:07 Pain Estrogen Shot Preservative Allergy Swelling Uncoded 03/24/19 11:07 And Redness Physical Exam Vitals: Vital Signs Temp Pulse Resp BP Pulse Ox 03/24/19 17:49 97.7 F 65 16 108/66 94 L 03/24/19 17:15 58 L 16 115/66 100 03/24/19 16:45 55 L 16 108/66 100 03/24/19 16:15 56 L 16 102/51 100 03/24/19 16:00 55 L 16 115/63 100 03/24/19 15:45 54 L 16 110/61 99 03/24/19 15:30 57 L 16 97/54 99 03/24/19 15:15 58 L 16 111/58 99 03/24/19 15:00 56 L 16 107/56 99 03/24/19 14:50 97 F L 61 16 116/56 99 03/24/19 12:14 65 131/63 99 03/24/19 11:17 97.8 F 83 159/70 99 Intake and Output 03/24/19 03/24/19 03/25/19 14:59 22:59 06:59 Intake Total 1101 150 Output Total 25 150 Balance 1076 0 Intake: IV 1101 150 Output: Urine 150 Estimated Blood Loss 25 Other: Weight 82.554 kg Constitutional: No acute distress, conversant, pleasant Eyes: Anicteric sclerae, moist conjunctiva, no lid-lag Pupils equal round reactive to light ENMT: NC/AT Oropharynx clear, no erythema, exudates Neck: Supple, FROM, no masses, or JVD No carotid bruits No thyromegaly Lungs: Clear to auscultation Clear to percussion Normal respiratory effort, no accessory muscle use Cardiovascular: Heart regular in rate and rhythm, Slight systolic murmurs, no gallops, or rubs No peripheral edema Abdominal: Soft Nontender, no guarding, rebound or rigidity Abdomen moving with respiration Normoactive bowel sounds No hepatomegaly, No splenomegaly No palpable mass No abdominal wall hernia noted Skin: Normal temperature, tone, texture, turgor No induration No subcutaneous nodules No rash, lesions No ulcers Extremities: Surgical dressing over right lower extremity with pain pump in her thigh for nerve block No digital cyanosis No clubbing Pedal pulses intact and symmetrical Radial pulses intact and symmetrical No calf tenderness Psychiatric: Alert and oriented to person, place and time Appropriate affect fair judgment Neuro Muscles Strength 5/5 in bilateral upper and left lower extremity, limited exam over right lower extremity due to surgery Sensation to light touch grossly present throughout Cranial nerves II-XII grossly intact No focal sensory deficits Lymphatics: no palpable cervical or supraclavicular , or inguinal lymph nodes Assessment and Plan Assessment: 79-year-old female with history of hypertension and arthritis admitted for scheduled right total knee arthroplasty tolerated procedure well no observed immediate competitions medicine consulted for medical management Plan: Right knee osteoarthritis status post right total knee arthroplasty Postoperative day 0 Management per orthopedics for pain and DVT prophylaxis Hypertension Currently controlled Resume home medications chlorthalidone and lisinopril in the morning Follow-up morning labs BMP and CBC Patient is full code Thank you for allowing us to participate in the care of this patient. Do not hesitate to contact us with questions. Someone can be reached from the [facility] hospitalist group at all hours of the day at [phone].
[2019-03-24] MEDS: PRAVASTATIN SODIUM 80 MG TAB PO SCH (23:49)
[2019-03-25 06:39] LABS: Basophils % (A) 0 %; Eosinophils # (A) 0.2 k/uL (0-0.7); Eosinophils % (A) 2 %; HCT 35.5 % (34.0-46.0); HGB 11.2 gm/dL (11.4-16.0); Lymphocytes # (A) 0.9 k/uL (1.0-4.8); Lymphocytes % (A) 10 %; MCH 31.8 pg (25.0-35.0); MCHC 31.6 g/dL (31.0-37.0); MCV 100.7 fL (80.0-100.0); Macrocytosis Slight; Mean Platelet Volume 7.1; Monocytes # (A) 0.5 k/uL (0-1.0); Monocytes % (A) 6 %; Neutrophils # (A) 7.1 k/uL (1.3-7.7); Neutrophils % (A) 80 %; Platelet Count 195 k/uL (150-450); RBC 3.52 m/uL (3.80-5.40); WBC 8.8 k/uL (3.8-10.6)
[2019-03-25] MEDS: PANTOPRAZOLE 40 MG TABLET PO SCH (07:19)
--- NOTE | 2019-03-25 07:42 | P.PN ---
Progress Note - Text 03/25 705am 79-year-old female status post total knee replacement by Dr. Rodriguez. patient. Plan to continue On-Q pump infusion has an On-Q pump for postop pain control with the solution running at 8 mL an hour with a VAS of 2
[2019-03-25] MEDS: HYDROcodone/APAP 5-325MG 1 EACH TAB PO PRN ×3 (09:00→21:21)
[2019-03-25] MEDS: ENOXAPARIN 30 MG/0.3 ML SYRINGE SQ SCH ×2 (09:01→21:20)
[2019-03-25] MEDS: ASPIRIN 81 MG PO SCH (09:01)
[2019-03-25] MEDS: LISINOPRIL 10 MG TAB PO SCH (09:01)
[2019-03-25] MEDS: CHLORTHALIDONE 25 MG TAB PO SCH (09:01)
[2019-03-25] MEDS: MELOXICAM 7.5 MG TAB PO SCH (09:01)
--- NOTE | 2019-03-25 12:06 | P.PN ---
Subjective Progress Note Date: 03/25/19 Principal diagnosis: Status post right total knee arthroplasty Patient evaluated at bedside, she's resting comfortably. She's ambulated minimally with therapy. She notes most discomfort when ambulating. Patient is very concerned about going home, she lives alone. She is interested in going to rehab. This has been related to case management Objective - Vital Signs Vital signs: Vital Signs Temp 98.4 F 03/25/19 07:00 Pulse 75 03/25/19 07:00 Resp 17 03/25/19 07:00 BP 144/69 03/25/19 07:00 Pulse Ox 96 03/25/19 07:00 Intake & Output 03/24/19 03/25/19 03/25/19 18:59 06:59 18:59 Intake Total 1251 Output Total 25 500 Balance 1226 -500 Weight 82.554 kg Intake: IV 1251 Output: Urine 500 Estimated Blood Loss 25 Other: # Voids 1 - Exam Right lower extremity: Incision is clean, dry, and intact. The exofin fusion tape is in good condition. There is minimal soft tissue swelling and ecchymosis surrounding the medial and lateral aspects of the incision. Calf is soft, no tenderness with pa lpation. Plantar flexion, dorsiflexion, EHL, FHL are intact. Sensory exam to light touch throughout the extremity is intact, dorsal pedis pulses 2+. - Labs CBC & Chem 7: 03/25/19 06:19 Labs: Abnormal Lab Results - Last 24 Hours (Table) 03/25/19 Range/Units 06:19 RBC 3.52 L (3.80-5.40) m/uL Hgb 11.2 L (11.4-16.0) gm/dL MCV 100.7 H (80.0-100.0) fL Lymphocytes # 0.9 L (1.0-4.8) k/uL Assessment and Plan Plan: Assessment: Postoperative day #1 status post right total knee arthroplasty Plan: Pain control, continue current medication GI and DVT prophylaxis, continue current medication Wound care instructions were discussed Icing and elevating techniques discussed Continue work with physical therapy Medical recommendations Inpatient status has been assigned, case management is working on rehab placement Plan discharge in the next 2-3 days. Time with Patient: Less than 30
[2019-03-25] MEDS: SODIUM CHLORIDE 0.9% 1,000 ML IV SCH (12:12)
--- NOTE | 2019-03-25 12:57 | P.PN ---
Subjective Progress Note Date: 03/25/19 Principal diagnosis: Right knee pain Patient was seen and examined. No acute events overnight. Patient reports vague right knee pain, 5 out of 10 in severity. Well-controlled with current pain medications. She denies any chest pain, shortness of breath or palpitations. No nausea or vomiting. No fever or chills. Objective - Vital Signs Vital signs: Vital Signs Temp 98.4 F 03/25/19 07:00 Pulse 75 03/25/19 07:00 Resp 17 03/25/19 07:00 BP 144/69 03/25/19 07:00 Pulse Ox 96 03/25/19 07:00 Intake & Output 03/24/19 03/25/19 03/25/19 18:59 06:59 18:59 Intake Total 1251 Output Total 25 500 Balance 1226 -500 Weight 82.554 kg Intake: IV 1251 Output: Urine 500 Estimated Blood Loss 25 Other: # Voids 1 - Exam General: [non toxic], [no distress], [appears at stated age] Derm: [warm], [dry] Head: [atraumatic], [normocephalic], [symmetric] Eyes: [EOMI], [no lid lag], [anicteric sclera] Mouth: [no lip lesion], [mucus membranes moist] Cardiovascular: [S1S2 reg], [no murmur], [positive DP pulse bilateral], Lungs: [CTA bilateral], [no rhonchi, no rales] , [no accessory muscle use] Abdominal: [soft], [ nontender to palpation], [no guarding], [no appreciable organomegaly] Ext: [no gross muscle atrophy], [no edema], [right knee wrapped with dressings clean dry and intact] Neuro: [no focal neuro deficits] Psych: [Alert], [oriented], [appropriate affect] - Labs CBC & Chem 7: 03/25/19 06:19 Labs: Abnormal Lab Results - Last 24 Hours (Table) 03/25/19 Range/Units 06:19 RBC 3.52 L (3.80-5.40) m/uL Hgb 11.2 L (11.4-16.0) gm/dL MCV 100.7 H (80.0-100.0) fL Lymphocytes # 0.9 L (1.0-4.8) k/uL Assessment and Plan Assessment: Right knee osteoarthritis status post right total knee arthroplasty postoperative day 1 Macrocytic anemia Hypertension Plans: Management as per orthopedic surgery. Social work on board for pl acement. MCV 100.7. B12 within normal limits in 2019. Plans: Repeat CBC in the morning. Transfuse if hemoglobin less than 7. BP 144/69. Plans: Continue chlorthalidone, lisinopril. Monitor vitals, adjust indications as necessary. [Inpatient day 1. Pending placement in rehab.]
[2019-03-25] MEDS: PRAVASTATIN SODIUM 80 MG TAB PO SCH (21:20)
[2019-03-25] MEDS: LACTATED RINGERS 1,000 ML IV SCH (23:01)
[2019-03-25] MEDS ORDERED: HEPARIN SODIUM,PORCINE 5,000 UNIT/ML 1 ML VIAL ONE (23:05)
[2019-03-26] MEDS ORDERED: SODIUM CHLORIDE 0.9% 1,000 ML BAG ONE (02:00)
[2019-03-26] MEDS ORDERED: HYDROcodone/APAP 5-325MG 1 EACH TAB ONE (03:07)
[2019-03-26] MEDS: SODIUM CHLORIDE 0.9% 1,000 ML IV SCH (07:34)
[2019-03-26] MEDS: ENOXAPARIN 30 MG/0.3 ML SYRINGE SQ SCH ×2 (07:42→20:04)
[2019-03-26] MEDS: LISINOPRIL 10 MG TAB PO SCH (07:42)
[2019-03-26] MEDS: PANTOPRAZOLE 40 MG TABLET PO SCH (07:42)
[2019-03-26] MEDS: CHLORTHALIDONE 25 MG TAB PO SCH (07:42)
[2019-03-26] MEDS: ASPIRIN 81 MG PO SCH (07:42)
[2019-03-26] MEDS: MELOXICAM 7.5 MG TAB PO SCH (07:43)
[2019-03-26] MEDS: HYDROcodone/APAP 5-325MG 1 EACH TAB PO PRN ×2 (09:28→15:54)
--- NOTE | 2019-03-26 10:24 | P.PN ---
Subjective Progress Note Date: 03/26/19 Principal diagnosis: Status post right total knee arthroplasty Patient evaluated at bedside, she's resting comfortably. She's ambulated minimally with therapy. She notes most discomfort when ambulating. Objective - Vital Signs Vital signs: Vital Signs Temp 98.2 F 03/26/19 07:00 Pulse 76 03/26/19 07:00 Resp 16 03/26/19 07:00 BP 120/55 03/26/19 07:00 Pulse Ox 94 L 03/26/19 07:00 Intake & Output 03/25/19 03/26/19 03/26/19 18:59 06:59 18:59 Intake Total 400 480 480 Balance 400 480 480 Intake: IV 400 Sodium Chloride 0.9% 1, 400 000 ml @ 50 mls/hr IV . Q20H DEMARCUS Rx#:[id number] Oral 480 480 Other: # Voids 1 - Exam Right lower extremity: Incision is clean, dry, and intact. The exofin fusion tape is in good condition. There is minimal soft tissue swelling and ecchymosis surrounding the medial and lateral aspects of the incision. Calf is soft, no tenderness with palpation. Plantar flexion, dorsiflexion, EHL, FHL are intact. Sensory exam to light touch throughout the extremity is intact, dorsal pedis pulses 2+. - Labs CBC & Chem 7: 03/25/19 06:19 Assessment and Plan Plan: Assessment: Postoperative day #2 status post right total knee arthroplasty Plan: Pain control, continue current medication GI and DVT prophylaxis, continue current medication Wound care instructions were discussed Icing and elevating techniques discussed Continue work with physical therapy Medical recommendations Inpatient status has been assigned, case management is working on rehab placement Plan discharge in the next 2-3 days. Time with Patient: Less than 30
--- NOTE | 2019-03-26 13:03 | P.PN ---
Subjective Progress Note Date: 03/26/19 Principal diagnosis: Right knee pain Patient was seen and examined. No acute events overnight. Patient reports improvement in her right knee pain, able to ambulate down the hallway into the washroom today but had to increase in oral pain medication. Well-controlled with current pain medications. She denies any chest pain, shortness of breath or palpitations. No nausea or vomiting. No fever or chills. Objective - Vital Signs Vital signs: Vital Signs Temp 98.2 F 03/26/19 07:00 Pulse 76 03/26/19 07:00 Resp 16 03/26/19 07:00 BP 120/55 03/26/19 07:00 Pulse Ox 94 L 03/26/19 07:00 Intake & Output 03/25/19 03/26/19 03/26/19 18:59 06:59 18:59 Intake Total 400 480 480 Balance 400 480 480 Intake: IV 400 Sodium Chloride 0.9% 1, 400 000 ml @ 50 mls/hr IV . Q20H DEMARCUS Rx#:[id number] Oral 480 480 Other: # Voids 1 3 - Exam General: [non toxic], [no distress], [appears at stated age] Derm: [warm], [dry] Head: [atraumatic], [normocephalic], [symmetric] Eyes: [EOMI], [no lid lag], [anicteric sclera] Mouth: [no lip lesion], [mucus membranes moist] Cardiovascular: [S1S2 reg], [no murmur], [positive DP pulse bilateral], Lungs: [CTA bilateral], [no rhonchi, no rales] , [no accessory muscle use] Abdominal: [soft], [ nontender to palpation], [no guarding], [no appreciable o rganomegaly] Ext: [no gross muscle atrophy], [no edema], [right knee wrapped with dressings clean dry and intact] Neuro: [no focal neuro deficits] Psych: [Alert], [oriented], [appropriate affect] - Labs CBC & Chem 7: 03/25/19 06:19 Assessment and Plan Assessment: Right knee osteoarthritis status post right total knee arthroplasty postoperative day 1 Macrocytic anemia Hypertension Plans: Management as per orthopedic surgery. Social work on board for placement. MCV 100.7. B12 within normal limits in 2019. Plans: Transfuse if hemoglobin less than 7. BP 120/55. Plans: Continue chlorthalidone, lisinopril. Monitor vitals, adjust indications as necessary. [Inpatient day 2. Pending placement in rehab.]
[2019-03-26] MEDS: PRAVASTATIN SODIUM 80 MG TAB PO SCH (20:04)
[2019-03-27] MEDS: HYDROcodone/APAP 5-325MG 1 EACH TAB PO PRN ×4 (00:10→19:46)
[2019-03-27] MEDS: SODIUM CHLORIDE 0.9% 1,000 ML IV SCH ×2 (02:47→21:37)
[2019-03-27] MEDS: LACTATED RINGERS 1,000 ML IV SCH (05:48)
[2019-03-27] MEDS: MELOXICAM 7.5 MG TAB PO SCH (07:25)
[2019-03-27] MEDS: LISINOPRIL 10 MG TAB PO SCH (07:25)
[2019-03-27] MEDS: PANTOPRAZOLE 40 MG TABLET PO SCH (07:25)
[2019-03-27] MEDS: ENOXAPARIN 30 MG/0.3 ML SYRINGE SQ SCH ×2 (07:25→19:46)
[2019-03-27] MEDS: ASPIRIN 81 MG PO SCH (07:25)
[2019-03-27] MEDS: CHLORTHALIDONE 25 MG TAB PO SCH (07:25)
[2019-03-27 07:53] VITALS: RESP 16
[2019-03-27 07:54] LABS: Basophils % (A) 0 %; Eosinophils # (A) 0.3 k/uL (0-0.7); Eosinophils % (A) 3 %; HCT 33.1 % (34.0-46.0); Lymphocytes # (A) 1.3 k/uL (1.0-4.8); Lymphocytes % (A) 16 %; MCH 32.6 pg (25.0-35.0); MCHC 33.1 g/dL (31.0-37.0); MCV 98.6 fL (80.0-100.0); Mean Platelet Volume 6.1; Monocytes # (A) 0.5 k/uL (0-1.0); Monocytes % (A) 6 %; Neutrophils # (A) 6.2 k/uL (1.3-7.7); Neutrophils % (A) 72 %; Platelet Count 236 k/uL (150-450); RBC 3.36 m/uL (3.80-5.40); RDW 14.5 % (11.5-15.5); WBC 8.6 k/uL (3.8-10.6)
--- NOTE | 2019-03-27 10:48 | P.PN ---
Progress Note - Text Progress Note Date: 03/27/19 Patient waiting rehab. [facility] first choice. Needs 3 inpatient days, which will be tomorrow. Her blood pressures well controlled with current medications. Her hemoglobin has remained stable from March 25 to March 27. Pain is being well controlled with oral medications. We will sign off at this point. Please call [facility] with any additional questions or concerns.
--- NOTE | 2019-03-27 12:27 | P.PN ---
Subjective Progress Note Date: 03/27/19 Principal diagnosis: Status post right total knee arthroplasty Patient evaluated at bedside, she's resting comfortably. No acute complaints today. Objective - Vital Signs Vital signs: Vital Signs Temp 97.1 F L 03/27/19 07:51 Pulse 72 03/27/19 07:51 Resp 16 03/27/19 07:51 BP 112/70 03/27/19 07:51 Pulse Ox 94 L 03/27/19 07:51 Intake & Output 03/26/19 03/27/19 03/27/19 18:59 06:59 18:59 Intake Total 960 480 Balance 960 480 Intake: Oral 960 480 Other: # Voids 3 2 - Exam Right lower extremity: Incision is clean, dry, and intact. The exofin fusion tape is in good condition. There is minimal soft tissue swelling and ecchymosis surrounding the medial and lateral aspects of the incision. Calf is soft, no tenderness with palpation. Plantar flexion, dorsiflexion, EHL, FHL are intact. Sensory exam to light touch throughout the extremity is intact, dorsal pedis pulses 2+. - Labs CBC & Chem 7: 03/27/19 07:08 Labs: Abnormal Lab Results - Last 24 Hours (Table) 03/27/19 Range/Units 07:08 RBC 3.36 L (3.80-5.40) m/uL Hgb 11.0 L (11.4-16.0) gm/dL Hct 33.1 L (34.0-46.0) % Assessment and Plan Plan: Assessment: Postoperative day #3 status post right total knee arthroplasty Plan: Pain control, continue current medication GI and DVT prophylaxis, continue current medication Wound care instructions were discussed Icing and elevating techniques discussed Continue work with physical therapy Medical recommendations Plan discharge to rehab tomorrow . Time with Patient: Less than 30
[2019-03-27] MEDS: PRAVASTATIN SODIUM 80 MG TAB PO SCH (19:46)
[2019-03-28] MEDS: LACTATED RINGERS 1,000 ML IV SCH (02:48)
[2019-03-28] MEDS: HYDROcodone/APAP 5-325MG 1 EACH TAB PO PRN ×2 (03:29→09:43)
[2019-03-28 07:41] VITALS: BP 106/66; PULSE 64; TEMP 97.8
[2019-03-28] MEDS: MELOXICAM 7.5 MG TAB PO SCH (09:35)
[2019-03-28] MEDS: ENOXAPARIN 30 MG/0.3 ML SYRINGE SQ SCH (09:35)
[2019-03-28] MEDS: PANTOPRAZOLE 40 MG TABLET PO SCH (09:35)
[2019-03-28] MEDS: LISINOPRIL 10 MG TAB PO SCH (09:36)
[2019-03-28] MEDS: ASPIRIN 81 MG PO SCH (09:36)
[2019-03-28] MEDS: CHLORTHALIDONE 25 MG TAB PO SCH (09:36)
--- NOTE | 2019-03-28 10:17 | P.PN ---
Subjective Progress Note Date: 03/28/19 Principal diagnosis: Status post right total knee arthroplasty Patient evaluated at bedside, she's resting comfortably. No acute complaints today. Objective - Vital Signs Vital signs: Vital Signs Temp 97.8 F 03/28/19 07:00 Pulse 64 03/28/19 07:00 Resp 16 03/28/19 07:00 BP 106/66 03/28/19 07:00 Pulse Ox 96 03/28/19 07:00 Intake & Output 03/27/19 03/28/19 03/28/19 18:59 06:59 18:59 Intake Total 960 296 Balance 960 296 Intake: Oral 960 296 Other: # Voids 3 3 - Exam Right lower extremity: Incision is clean, dry, and intact. The exofin fusion tape is in good condition. There is minimal soft tissue swelling and ecchymosis surrounding the medial and lateral aspects of the incision. Calf is soft, no tenderness with palpation. Plantar flexion, dorsiflexion, EHL, FHL are intact. Sensory exam to light touch throughout the extremity is intact, dorsal pedis pulses 2+. - Labs CBC & Chem 7: 03/27/19 07:08 Assessment and Plan Plan: Assessment: Postoperative day #4 status post right total knee arthroplasty Plan: Pain control, we'll discharge on oral medication GI and DVT prophylaxis, aspirin 81 mg twice a day Wound care instructions were discussed Icing and elevating techniques discussed Continue work with physical therapy Medical recommendations discharged to rehab today Time with Patient: Less than 30
--- NOTE | 2019-03-28 10:19 | P.DS ---
Providers Date of admission: 03/24/2019 Expected date of discharge: 03/28/19 Attending physician: Bony Rodriguez Consults: 03/24/19 14:34 Consult Physician Routine Consulting Provider: Isaura Physician Consult Reason/Comments: Medical management Do you want consulting provider notified?: Yes Primary care physician: Ashley Vides MD Hospital Course: Date of admission: 03/24/2019 Date of discharge: 03/28/2019 Admission diagnosis: Status post right total knee arthroplasty Discharge diagnosis: Same Attending physician: Dr. Rodriguez Surgical procedures: Right total knee arthroplasty Brief history: Patient is a 79-year-old female with a history of progressive primary right knee osteoarthritis. Patient has failed conservative treatment measures and has opted to proceed with a elective right total knee arthroplasty. Hospital course: Details of patient's surgery can be found in operative report. Patient tolerated the procedure well and was subsequently transported to orthopedic floor. Patient's orthopeidc and medical care was provided daily. Patient had daily laboratory tests performed for evaluation of overall blood counts. Patient had daily physical therapy to include strengthening range of motion as well as education with walker ambulation. Patient was treated with Lovenox for their postoperative DVT prophylaxis during their inpatient stay. Patient was noted to have a relatively uneventful postoperative course. Patient reported satisfactory pain control with oral pain medications by postoperative day 0. Patient showed satisfactory progress with physical therapy. Patient moved steadily through the program and had no difficulty meeting the goals by postoperative day 2. Given patient's otherwise satisfactory course and having met physical therapy goals, plan is to discharge patient rehab on postoperative day 4. Discharge condition/disposition: Patient will be discharged to rehab in stable condition. Discharge medications: Instructions are given on resumption of patient's normal daily medications per primary care recommendation, in addition patient will be prescribed Verdi 5 mg/325 mg, Colace 100 mg. Discharge instructions: 1. Wound care and infection precautions, keep incision dry and covered while showering, no lotions, creams, moisturizers. No soaking, tubs, pools, hottubs. Do not scrub over the incision. 2. Weight-bear as tolerated with walker / cane until follow-up. 3. Ice and elevate when necessary. Do not exceed 20 minutes per hour with ice pack. 4. Utilize compression sleeve until seen at first follow up appointment. 5. Visiting nursing care. 6. Home physical therapy including home CPM. 7. Pain meds and anticoagulants per prescription. 8. Pain medication has potential to cause constipation. Increase oral fluid and fiber intake. Contact primary care provider if you have not had a bowel movement within 48 hours after discharge 9. No anti-inflammatory medication until discussed at first post operative visit, this including Motrin, Aleve, Mobic, Diclofenac. 10. Follow up in office at 2 weeks postop with Edinson Hayden PA-C 11. Follow up with your primary care doctor 7-10 days after discharge. 12. Contact [facility] with any questions, . Procedures: Right total knee arthroplasty Patient Condition at Discharge: Good Plan - Discharge Summary Discharge Rx Participant: Yes New Discharge Prescriptions: New Aspirin [Adult Low Dose Aspirin EC] 81 mg PO BID #60 tablet. Docusate [Colace] 100 mg PO DAILY #30 capsule Hydrocodone/Acetaminophen [Verdi 5-325] 1 - 2 each PO Q6HR PRN #40 tab PRN Reason: Pain No Action Pravastatin Sodium [Pravachol] 80 mg PO HS Chlorthalidone [Hygroten] 50 mg PO DAILY Lisinopril [Zestril] 10 mg PO DAILY Omeprazole [PriLOSEC] 20 mg PO AC-BRKFST [place]-3 Fatty Acids/Fish Oil [Fish Oil 1,000 mg Softgel] 1,400 each PO DAILY Multivitamins, Thera [Multivitamin (formulary)] 1 tab PO DAILY Calcium Carbonate [Calcium] 600 mg PO BID Cholecalciferol (Vitamin D3) [Vitamin D3] 5,000 unit PO DAILY Lutein 25 mg PO DAILY Discharge Medication List Pravastatin Sodium [Pravachol] 80 mg PO HS 11/05/14 [History] Chlorthalidone [Hygroten] 50 mg PO DAILY 08/30/18 [History] Lisinopril [Zestril] 10 mg PO DAILY 08/30/18 [History] Calcium Carbonate [Calcium] 600 mg PO BID 01/06/19 [History] Cholecalciferol (Vitamin D3) [Vitamin D3] 5,000 unit PO DAILY 01/06/19 [History] Lutein 25 mg PO DAILY 01/06/19 [History] Multivitamins, Thera [Multivitamin (formulary)] 1 tab PO DAILY 01/06/19 [History] [place]-3 Fatty Acids/Fish Oil [Fish Oil 1,000 mg Softgel] 1,400 each PO DAILY 01/06/19 [History] Omeprazole [PriLOSEC] 20 mg PO AC-BRKFST 01/06/19 [History] Aspirin [Adult Low Dose Aspirin EC] 81 mg PO BID #60 tablet. 03/28/19 [Rx] Docusate [Colace] 100 mg PO DAILY #30 capsule 03/28/19 [Rx] Hydrocodone/Acetaminophen [Verdi 5-325] 1 - 2 each PO Q6HR PRN #40 tab 03/28/19 [Rx] Follow up Appointment(s)/Referral(s): Mehrdad Hayden PAC [PHYSICIAN MANAGER [employer]] - 04/09/19 3:40 pm Patient Instructions/Handouts: *Surgery [facility] - On-Q Pain Pump Discharge Instructions, Knee Replacement (DC) Activity/Diet/Wound Care/Special Instructions: Orthopedic Discharge Instructions: 1. Wound care and infection precautions, keep incision dry and covered while showering, no lotions, creams, moisturizers. No soaking, pools, hot tubs. Do not scrub over incision. 2. Weight-bear as tolerated with walker / cane until follow-up. 3. Ice and elevate when necessary. Do not exceed 20 minutes per hour with ice pack. 4. Utilize compression sleeve until seen at first follow up appointment. 5. Pain meds and anticoagulants per prescription. 6. Pain medication has potential to cause constipation. Increase oral fluid and fiber intake. Contact primary care provider if you have not had a bowel movement within 48 hours after discharge. 7. No anti-inflammatory medication until discussed at first post operative visit, this including Motrin, Aleve, Mobic, Diclofenac. 8. Follow up in office at 2 weeks postop with Edinson Hayden PA-C 9. Follow up with your primary care doctor 7-10 days after discharge. 10. Contact [facility] with any questions, . Discharge Disposition: TRANSFER TO SNF/ECF
== END 2019-03-28 13:02 | DRG 470 ==
LOC: OR 10:52 → 4SSUR 17:15 → OR 03-25 10:59 → 4SSUR 03-25 16:24
PROVIDERS: ADMIT Orthopaedic Surgery; ATTEND Orthopaedic Surgery
PROC: 0SRC0J9 Replacement of Right Knee Joint with Synthetic Substitute, Cemented, Open Approach (ICD-10-PCS; principal; 2019-03-24 12:30)
DX: M17.11 Unilateral primary osteoarthritis, right knee (principal); E78.5 Hyperlipidemia, unspecified; I10 Essential (primary) hypertension; K21.9 Gastro-esophageal reflux disease without esophagitis; G62.9 Polyneuropathy, unspecified; F41.9 Anxiety disorder, unspecified; Z60.2 Problems related to living alone; D53.9 Nutritional anemia, unspecified; I73.9 Peripheral vascular disease, unspecified; Z98.891 History of uterine scar from previous surgery; Z90.710 Acquired absence of both cervix and uterus; Z90.89 Acquired absence of other organs; Z98.51 Tubal ligation status; Z98.49 Cataract extraction status, unspecified eye; Z98.890 Other specified postprocedural states; Z80.9 Family history of malignant neoplasm, unspecified; Z88.1 Allergy status to other antibiotic agents; Z85.828 Personal history of other malignant neoplasm of skin; Z79.899 Other long term (current) drug therapy; Z79.82 Long term (current) use of aspirin; Z88.8 Allergy status to other drugs, medicaments and biological substances; Z88.6 Allergy status to analgesic agent
CPT/HCPCS: 85025; 88300

== ENCOUNTER 2020-11-18 20:51 | Emergency (ER) | payer MEDICARE, BC ==
[2020-11-18 22:21] VITALS: BP 139/77; PULSE 60; RESP 139; TEMP 97.4
--- NOTE | 2020-11-18 23:42 | ED ---
Abdominal Pain HPI - General Chief Complaint: Abdominal Pain Stated Complaint: Possible shot reaction Time Seen by Provider: 11/18/20 23:10 Source: patient, RN notes reviewed, old records reviewed Mode of arrival: ambulatory - History of Present Illness Initial Comments: This is a 80-year-old female DF for evaluation. Patient received injections today for neck sprain Is a. Patient states the neck does feel improved but hasn't GI upset, nausea has burning earlier today. Patient takes maybe medication reaction, does admit that she has been the hospital that her symptoms are improving she did take antiacids prior to coming MD Complaint: abdominal pain -: hour(s) Location: epigastric Radiation: epigastric Migration to: epigastric Severity: mild Severity scale (1-10): 3 Quality: sharp Consistency: now resolved Improves With: nothing Worsens With: nothing Associated Symptoms: nausea Treatments Prior to Arrival: NSAIDs - Related Data Home Medications Medication Instructions Recorded Confirmed Pravastatin Sodium [Pravachol] 80 mg PO HS 11/05/14 03/24/19 Chlorthalidone [Hygroten] 50 mg PO DAILY 08/30/18 03/24/19 Lisinopril [Zestril] 10 mg PO DAILY 08/30/18 03/24/19 Calcium Carbonate [Calcium] 600 mg PO BID 01/06/19 03/24/19 Cholecalciferol (Vitamin D3) 5,000 unit PO DAILY 01/06/19 03/24/19 [Vitamin D3] Lutein 25 mg PO DAILY 01/06/19 03/24/19 Multivitamins, Thera [Multivitamin 1 tab PO DAILY 01/06/19 03/24/19 (formulary)] To[place]-3 Fatty Acids/Fish Oil [Fish 1,400 each PO DAILY 01/06/19 03/24/19 Oil 1,000 mg Softgel] Omeprazole [PriLOSEC] 20 mg PO AC-BRKFST 01/06/19 03/24/19 Previous Rx's Medication Instructions Recorded Aspirin 81 mg PO DAILY chew 03/28/19 Aspirin [Adult Low Dose Aspirin EC] 81 mg PO BID #60 tablet. 03/28/19 Docusate [Colace] 100 mg PO DAILY #30 capsule 03/28/19 Hydrocodone/Acetaminophen [[place] 1 - 2 each PO Q6HR PRN #40 tab 03/28/19 5-325] Allergies Allergy/AdvReac Type Severity Reaction Status Date / Time alprazolam [From Xanax] AdvReac Unknown SPEECH Verified 11/18/20 22:21 SLURRED, DIFFICULTY WRITING aspirin AdvReac Burning Verified 11/18/20 22:21 sensation in stomach. Can only take Enteric Coated. erythromycin base AdvReac Abdominal Verified 11/18/20 22:21 Pain Estrogen Shot Preservative Allergy Swelling Uncoded 11/18/20 22:21 And Redness Review of Systems ROS Statement: Those systems with pertinent positive or pertinent negative responses have been documented in the HPI. ROS Other: All systems not noted in ROS Statement are negative. Past Medical History Past Medical History: Cancer, GERD/Reflux, Hyperlipidemia, Hypertension, Osteoarthritis (OA) Additional Past Medical History / Comment(s): skin cancer History of Any Multi-Drug Resistant Organisms: None Reported Past Surgical History: Section, Hysterectomy, Joint Replacement, Tonsillectomy, Tubal Ligation Additional Past Surgical History / Comment(s): cataracts removed, Moh's procedure to remove skin cancer Past Anesthesia/Blood Transfusion Reactions: No Reported Reaction Past Psychological History: Anxiety Smoking Status: Former smoker Past Alcohol Use History: Rare Past Drug Use History: None Reported - Past Family History Father Family Medical History: Cancer General Exam General appearance: alert, in no apparent distress Head exam: Present: atraumatic, normocephalic, normal inspection Eye exam: Present: normal appearance, PERRL, EOMI. Absent: scleral icterus, conjunctival injection, periorbital swelling ENT exam: Present: normal exam, mucous membranes moist Neck exam: Present: normal inspection. Absent: tenderness, meningismus, lymphadenopathy Respiratory exam: Present: normal lung sounds bilaterally. Absent: respiratory distress, wheezes, rales, rhonchi, stridor Cardiovascular Exam: Present: regular rate, normal rhythm, normal heart sounds. Absent: systolic murmur, diastolic murmur, rubs, gallop, clicks GI/Abdominal exam: Present: soft, normal bowel sounds. Absent: distended, tenderness, guarding, rebound, rigid Extremities exam: Present: normal inspection, full ROM, normal capillary refill. Absent: tenderness, pedal edema, joint swelling, calf tenderness Back exam: Present: normal inspection Neurological exam: Present: alert, oriented X3, CN II-XII intact Psychiatric exam: Present: normal affect, normal mood Skin exam: Present: warm, dry, intact, normal color. Absent: rash Course Vital Signs 11/18/20 22:15 Temperature 97.4 F L Pulse Rate 60 Respiratory 139 H Rate Blood Pressure 139/77 O2 Sat by Pulse 97 Oximetry - Reevaluation(s) Reevaluation #1: 11/18/20 23:51 Medical records reviewed Reevaluation #2: 11/18/20 23:51 Patient symptoms continue improved out intervention Reevaluation #3: 11/18/20 23:51 Patient informed results and questions answered Medical Decision Making - Medical Decision Making 80 female of gastritis or medication reaction. Patient symptoms are negative here in the ER she can be discharged home Disposition Clinical Impression: Gastritis, Abdominal pain, Medication reaction Disposition: HOME SELF-CARE Condition: Good Instructions (If sedation given, give patient instructions): Gastritis (ED) Is patient prescribed a controlled substance at d/c from ED?: No Referrals: Ran Mcgrath MD [Primary Care Provider] - 1-2 days
== END 2020-11-19 | disposition home or self-care (01) ==
LOC: EC 20:51
DX: K29.70 Gastritis, unspecified, without bleeding (principal); T50.905A Adverse effect of unspecified drugs, medicaments and biological substances, initial encounter; I10 Essential (primary) hypertension; E78.5 Hyperlipidemia, unspecified; K21.9 Gastro-esophageal reflux disease without esophagitis; F41.9 Anxiety disorder, unspecified; M19.90 Unspecified osteoarthritis, unspecified site; Z85.828 Personal history of other malignant neoplasm of skin; Z87.891 Personal history of nicotine dependence; Z79.82 Long term (current) use of aspirin; Z88.1 Allergy status to other antibiotic agents
CPT/HCPCS: 99283

== ENCOUNTER → 2021-05-09 | Outpatient (CLI) | payer MEDICARE, BC ==
[2021-05-09 17:34] LABS: Basophils % (A) 1 %; Eosinophils # (A) 0.2 k/uL (0-0.7); Eosinophils % (A) 2 %; HCT 41.5 % (34.0-46.0); Lymphocytes # (A) 1.9 k/uL (1.0-4.8); Lymphocytes % (A) 24 %; MCH 33.6 pg (25.0-35.0); MCHC 33.8 g/dL (31.0-37.0); MCV 99.4 fL (80.0-100.0); Mean Platelet Volume 7.6; Monocytes # (A) 0.4 k/uL (0-1.0); Monocytes % (A) 5 %; Neutrophils # (A) 5.3 k/uL (1.3-7.7); Neutrophils % (A) 67 %; Platelet Count 276 k/uL (150-450); RBC 4.18 m/uL (3.80-5.40); RDW 13.4 % (11.5-15.5); WBC 7.8 k/uL (3.8-10.6)
[2021-05-09 17:43] LABS: Albumin 4.3 g/dL (3.5-5.0); Calcium 9.6 mg/dL (8.4-10.2); Potassium 3.5 mmol/L (3.5-5.1); Total Bilirubin 0.4 mg/dL (0.2-1.3)
--- NOTE | 2021-05-09 22:24 | CT ---
EXAMINATION TYPE: CT ChestAbdPelvis w con DATE OF EXAM: 05/09/2021 COMPARISON: None HISTORY: Right upper quadrant abdominal/chest pain after fall x5 days ago. CT DLP: 881 mGycm Automated exposure control for dose reduction was used. CONTRAST: Performed with IV Contrast, patient injected with 100ml mL of Isovue 300. Images obtained from the thoracic inlet to the floor the pelvis with IV contrast. The lungs are clear of consolidation. There is no evidence of a pulmonary mass. There is no pleural e ffusion or pneumothorax. There is no pericardial effusion. Heart size is normal. There is no mediastinal adenopathy. There is 2 cm cyst in the left thyroid lobe. There is slight defo rmity of the trachea related to the presence of a cyst. There is no tracheal stenosis. There are no h ilar masses. There is normal contrast opacification of the pulmonary arteries. There are no filling d efect. Liver spleen stomach pancreas gallbladder appear normal. Bile ducts are not dilated. There is no adrenal mass. Kidneys show satisfactory contrast opacification. There is no hydronephrosi s. There is right lateral inguinal hernia contains mostly fat. Appendix is normal. Ureters are not di lated. Delayed images show bilateral renal multiple parapelvic cysts. The bladder distends smoothly. There is no inguinal hernia. There is no free fluid in the pelvis. There is no mesenteric edema. There is no ascites or free air. There is no bowel obstruction. There is no evidence of thoracic or lumbar compression fracture. There is moderate narrowing and spur formation at L2-3. Sternum is intact. The bony pelvis is intact. There is a moderate L4-5 spinal geronimo nosis related to facet arthropathy and minimal L4-5 spondylolisthesis. IMPRESSION: Normal appendix. No sign of acute abdomen and pelvis. L4-5 bony spinal stenosis. No acute abnormality of the chest. Left side large thyroid cyst.
== END | disposition home or self-care (01) ==
LOC: RADCTMAIN 16:59
PROVIDERS: ATTEND Family Medicine
DX: R10.9 Unspecified abdominal pain (principal); M48.061 Spinal stenosis, lumbar region without neurogenic claudication; W19.XXXA Unspecified fall, initial encounter
CPT/HCPCS: 80053; 85025; 71260; 74177; 36415; Q9967

== ENCOUNTER 2021-06-26 15:06 | Emergency (ER) | payer BC, MEDICARE, OTHER ==
[2021-06-26 16:00] VITALS: BP 132/64; PULSE 65; RESP 18; TEMP 98
--- NOTE | 2021-06-26 17:05 | XR ---
EXAMINATION TYPE: XR foot complete LT DATE OF EXAM: 06/26/2021 CLINICAL HISTORY: Injury. TECHNIQUE: Frontal, lateral, and oblique images of the left foot are obtained. COMPARISON: None FINDINGS: There is no acute fracture/dislocation evident in the left foot. The joint spaces in the foot appear within normal limits. The Lisfranc joint is not widened. Soft tissue prominence of the d orsal forefoot. Degenerative osteophytosis of the metatarsophalangeal joint. Well-corticated ossific fragment at the dorsal midfoot likely relates to old trauma. Plantar and posterior calcaneal spurs. IMPRESSION: Soft tissue prominence of the dorsal forefoot. There is no acute fracture or dislocation in the left foot.
[2021-06-26] MEDS ORDERED: BACITRACIN OINT 1 EACH PACKET TOPICAL ONE (17:40)
[2021-06-26] MEDS ORDERED: DIPH,PERTUS(ACELL)TETVAC-LF 0.5 ML VIAL IM ONE (17:40)
--- NOTE | 2021-06-26 17:42 | ED ---
Lower Extremity Injury HPI - General Chief Complaint: Extremity Injury, Lower Stated Complaint: L foot injury,R hand lac Time Seen by Provider: 06/26/21 17:16 Source: patient Mode of arrival: ambulatory Limitations: no limitations - History of Present Illness Initial Comments: 81 year-old female patient presents to the emergency department for evaluation of left foot and right hollis injury. States she went to lift a cast iron dish. States it weighed 50-60lbs which she was not expecting and she dropped it. It landed on her left foot and hit her right hollis. States she developed bruising and swelling to the foot. She is able to bear weight and ambulate. Denies numbness or tingling. Denies taking anything for pain. She is unsure when her last tetanus vaccine was given. Denies any other injuries or concerns. - Related Data Home Medications Medication Instructions Recorded Confirmed Pravastatin Sodium [Pravachol] 80 mg PO HS 11/05/14 03/24/19 Chlorthalidone [Hygroten] 50 mg PO DAILY 08/30/18 03/24/19 Lisinopril [Zestril] 10 mg PO DAILY 08/30/18 03/24/19 Calcium Carbonate [Calcium] 600 mg PO BID 01/06/19 03/24/19 Cholecalciferol (Vitamin D3) 5,000 unit PO DAILY 01/06/19 03/24/19 [Vitamin D3] Lutein 25 mg PO DAILY 01/06/19 03/24/19 Multivitamins, Thera [Multivitamin 1 tab PO DAILY 01/06/19 03/24/19 (formulary)] [place]-3 Fatty Acids/Fish Oil [Fish 1,400 each PO DAILY 01/06/19 03/24/19 Oil 1,000 mg Softgel] Omeprazole [PriLOSEC] 20 mg PO AC-BRKFST 01/06/19 03/24/19 Previous Rx's Medication Instructions Recorded Aspirin 81 mg PO DAILY chew 03/28/19 Aspirin [Adult Low Dose Aspirin EC] 81 mg PO BID #60 tablet. 03/28/19 Docusate [Colace] 100 mg PO DAILY #30 capsule 03/28/19 Hydrocodone/Acetaminophen [[place] 1 - 2 each PO Q6HR PRN #40 tab 03/28/19 5-325] Allergies Allergy/AdvReac Type Severity Reaction Status Date / Time alprazolam [From Xanax] AdvReac Unknown SPEECH Verified 06/26/21 16:00 SLURRED, DIFFICULTY WRITING aspirin AdvReac Burning Verified 06/26/21 16:00 sensation in stomach. Can only take Enteric Coated. erythromycin base AdvReac Abdominal Verified 06/26/21 16:00 Pain Estrogen Shot Preservative Allergy Swelling Uncoded 06/26/21 16:00 And Redness Review of Systems ROS Statement: Those systems with pertinent positive or pertinent negative responses have been documented in the HPI. ROS Other: All systems not noted in ROS Statement are negative. Past Medical History Past Medical History: Cancer, GERD/Reflux, Hyperlipidemia, Hypertension, Osteoarthritis (OA) Additional Past Medical History / Comment(s): skin cancer History of Any Multi-Drug Resistant Organisms: None Reported Past Surgical History: Section, Hysterectomy, Joint Replacement, Tonsillectomy, Tubal Ligation Additional Past Surgical History / Comment(s): cataracts removed, Moh's procedure to remove skin cancer Past Anesthesia/Blood Transfusion Reactions: No Reported Reaction Past Psychological History: Anxiety Smoking Status: Former smoker Past Alcohol Use History: Rare Past Drug Use History: None Reported - Past Family History Father Family Medical History: Cancer General Exam Limitations: no limitations General appearance: alert, in no apparent distress, other (This is a well- developed, well-nourished elderly female patient in no acute distress.) Respiratory exam: Present: normal lung sounds bilaterally. Absent: respiratory distress, wheezes, rales, rhonchi, stridor Cardiovascular Exam: Present: regular rate, normal rhythm, normal heart sounds. Absent: systolic murmur, diastolic murmur, rubs, gallop, clicks Extremities exam: Present: full ROM, tenderness (over the dorsal left forefoot), normal capillary refill, other (Ecchymosis, swelling, tenderness over the left dorsal forefoot. No tenderness over the left midfoot. There is abrasion noted to the right hollis, no active bleeding. Skin to the extremities is otherwise pink, warm, dry. Cap refill less than 3 seconds. Pedal and posttibial pulses 2+.). Absent: normal inspection, pedal edema, joint swelling, calf tenderness Neurological exam: Present: alert, oriented X3, CN II-XII intact Psychiatric exam: Present: normal affect, normal mood Skin exam: Present: warm, dry, intact, normal color. Absent: rash Course Vital Signs 06/26/21 15:57 Temperature 98.0 F Pulse Rate 65 Respiratory 18 Rate Blood Pressure 132/64 O2 Sat by Pulse 98 Oximetry Medical Decision Making - Medical Decision Making 81-year-old female patient presents to the emergency department today for evaluation after left foot injury and right hollis abrasion. Physical examination did reveal soft tissue swelling, ecchymosis to the forefoot. There is no tenderness over the mid foot. Patient is able to ambulate. X-ray was negative. Did cleanse the wound to the right hollis, applied bacitracin and a dressing. She is given Rahat wrap for the left foot. She is instructed to rest, ice, elevate. She declined pain medication here. Instructed to follow-up with her primary care physician for recheck in 1-2 days. She is instructed to have repeat x-ray performed in 7-10 days if her symptoms do not improve. Return parameters were discussed in detail. She verbalizes understanding and agrees with this plan. My attending is Dr. Cannon. - Radiology Data Radiology results: report reviewed, image reviewed X-ray of the left foot is obtained. Report was reviewed in its entirety. Impression by Dr. Leslie shows soft tissue prominence of the dorsal forefoot. There is no acute fracture dislocation in the left foot. Disposition Clinical Impression: Contusion of left foot, Abrasion of right lower leg Disposition: HOME SELF-CARE Condition: Good Instructions (If sedation given, give patient instructions): Foot Contusion (ED), Abrasion (ED) Additional Instructions: Use rahat wrap to the left foot for compression and support. Rest, ice, elevate the foot. Keep wound to the right leg clean and dry. Use tobacco ointment. Follow-up with your primary care physician for recheck in 1-2 days. Have repeat x-ray performed in 7-10 days if pain symptoms persist. Return to the emergency department for any new, worsening, or concerning symptoms. Is patient prescribed a controlled substance at d/c from ED?: No Referrals: Ran Mcgrath MD [Primary Care Provider] - 1-2 days Time of Disposition: 17:41
== END 2021-06-26 19:00 | disposition home or self-care (01) ==
LOC: EC 15:06
DX: S90.32XA Contusion of left foot, initial encounter (principal); S80.811A Abrasion, right lower leg, initial encounter; K21.9 Gastro-esophageal reflux disease without esophagitis; E78.5 Hyperlipidemia, unspecified; I10 Essential (primary) hypertension; M19.90 Unspecified osteoarthritis, unspecified site; F41.9 Anxiety disorder, unspecified; Z79.82 Long term (current) use of aspirin; Z85.828 Personal history of other malignant neoplasm of skin; Z90.710 Acquired absence of both cervix and uterus; Z98.51 Tubal ligation status; Z87.891 Personal history of nicotine dependence; W22.8XXA Striking against or struck by other objects, initial encounter
CPT/HCPCS: 90471; 90715; 99284

== ENCOUNTER → 2021-11-01 | Outpatient (CLI) | payer MEDICARE, BC | END | disposition home or self-care (01) | LOC: RADUSWWP 13:37 | PROVIDERS: ATTEND Family Medicine | DX: Z53.9 Procedure and treatment not carried out, unspecified reason (principal) ==

== ENCOUNTER → 2022-11-28 | Outpatient (CLI) | payer MEDICARE, BC ==
--- NOTE | 2022-11-28 22:17 | BD ---
EXAMINATION TYPE: Axial Bone Density DATE OF EXAM: 11/28/2022 CLINICAL HISTORY: 82 years old Female. ICD-10 CODE: M85.852 OTH DISRD OF BONE DENSITY AND STRUCTURE, LEFT HIP Height: 59 Weight: 147.6 FRAX RISK QUESTIONS: Alcohol (3 or more units per day): no Family History (Parent hip fracture): Mother Glucocorticoids (More than 3mos): no History of Fracture in Adulthood: no Secondary Osteoporosis: 1. Type 1 Diabetes: no 2. Hyperthyroidism: no 3. Menopause before 45: no 4. Malnutrition: no 5. Chronic liver disease: no Rheumatoid Arthritis: no Current Tobacco Use: no RISK FACTORS HISTORY OF: Hip Fracture (Right/Left): no Spine Fracture: no History of Wrist Fracture: no Surgery to Spine/Hip(right/left)/Wrist (right/left): no Family History of Osteoporosis: yes, mother Active: yes Diet low in dairy products/other sources of calcium: yes Postmenopausal woman: yes Take estrogen and/or progesterone medications: no Lost more than 2 inches in height since high school: yes Frequent falls: no Poor Health: no Hyperparathyroidism: no Adrenal Insufficiency: no MEDICATIONS: Prednisone or other steroids: no Thyroid Medications: no Osteoporosis Medications: no Additional Medications: BP Medsx2, Cholesterol Meds, Reflux Meds, Multi Vit., Calcium, Zinc, Biotin, Fish Oil Additional History: EXAM MEASUREMENTS: Bone mineral densitometry was performed using the [facility]. Bone mineral density as measured about the Lumbar spine is: ----- L1-L4(G/cm2): 1.305 T Score Values are as follows: ----- L1: -1.6 ----- L2: 1.3 ----- L3: -2.4 ----- L4: 1.6 ----- L1-L4: 1.0 Z Score Values are as follows: ----- L1: 0.2 ----- L2: 3.1 ----- L3: 4.2 ----- L4: 3.4 ----- L1-L4: 2.9 Baseline Study Bone mineral density about the R hip (g/cm2): 0.728 Bone mineral density about the L hip (g/cm2): 0.776 T Score values are as follows: -----R Neck: -2.6 -----L Neck: -2.5 -----R Total: -2.2 -----L Total: -1.8 Z Score values are as follows: -----R Neck: -0.4 -----L Neck: -0.3 -----R Total: -0.1 -----L Total: 0.3 Baseline Study FRAX%s: The graph provided illustrates a 38.6% chance for a major osteoporotic fx and a 28.3% chance for the hips probability for fx in 10 years time. IMPRESSION: Osteoporosis (T Score less than -2.5). There is increased fracture risk and therapy is usually indicated based on age. Re-Screen 1-2 years. NOTE: T-SCORE=SD OF THE YOUNG ADULT MEAN.
== END | disposition home or self-care (01) ==
LOC: RADBDWWP 12:31
PROVIDERS: ATTEND Internal Medicine
DX: M81.0 Age-related osteoporosis without current pathological fracture (principal); M85.89 Other specified disorders of bone density and structure, multiple sites
CPT/HCPCS: 77080

== ENCOUNTER → 2023-04-05 | Outpatient (CLI) | payer MEDICARE, BC ==
--- NOTE | 2023-04-05 13:12 | US ---
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 No hx of DVT. Patient takes baby aspirin. Pain in the right leg. SIDE PERFORMED: Right TECHNIQUE: The lower extremity deep venous system is examined utilizing real time linear array sonog corine with graded compression, doppler sonography and color-flow sonography. VESSELS IMAGED: Common Femoral Vein Deep Femoral Vein Greater Saphenous Vein * Femoral Vein Popliteal Vein Small Saphenous Vein * Proximal Calf Veins (* superficial vessels) Right Leg: No evidence of DVT. IMPRESSION:
== END | disposition home or self-care (01) ==
LOC: RADUSWWP 12:14
PROVIDERS: ATTEND Internal Medicine
DX: I83.891 Varicose veins of right lower extremity with other complications (principal); Z96.651 Presence of right artificial knee joint

== ENCOUNTER → 2023-05-02 | Outpatient (CLI) | payer MEDICARE, BC ==
--- NOTE | 2023-05-04 08:52 | MM ---
Reason for Exam: Screening (asymptomatic). Last mammogram was performed 5 year(s) and 1 month(s) ago. Patient History: Menarche at age 13. First Full-Term at age 26. Left ovary removed at age 56. Right ovary removed at age 56. Hysterectomy at age 56. Postmenopausal. Risk Values: Liz 5 year model risk: 1.7%. NCI Lifetime model risk: 2.0%. Prior Study Comparison: 01/10/2016 Screening Mammogram, [facility]. 01/23/2017 Screening Mammogram, [facility]. 03/14/2018 Bilateral Screening Mammogram, [facility]. Tissue Density: There are scattered fibroglandular densities. Findings: Analyzed By CAD. There is no suspicious group of microcalcifications or new suspicious mass in either breast. Overall Assessment: Benign, BI-RAD 2 Management: Screening Mammogram of both breasts in 1 year. . Patient should continue monthly self-breast exams. A clinical breast exam by your physician is recommended on an annual basis. This exam should not preclude additional follow-up of suspicious palpable abnormalities. Note on Liz scores and lifetime risk: 1. A Liz score greater than 3% is considered moderate risk. If this is the case, consider specialist referral to assess eligibility for a risk reducing agent. 2. If overall lifetime risk for the development of breast cancer is 20% or higher, the patient may qualify for future screening with alternating mammogram and breast MRI. Electronically signed and approved by: Shahriar Golden M.D. Radiologis
== END | disposition home or self-care (01) ==
LOC: RADMAMWWP 14:29
PROVIDERS: ATTEND Internal Medicine
DX: Z12.31 Encounter for screening mammogram for malignant neoplasm of breast (principal); Z78.0 Asymptomatic menopausal state
CPT/HCPCS: 77063; 77067

== ENCOUNTER → 2023-07-04 | Outpatient (CLI) | payer MEDICARE, BC ==
--- NOTE | 2023-07-04 16:21 | XR ---
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 FINDINGS: No evidence of any acute osseous pathology. There is grade 1 anterolisthesis of L5 and S1. Alignment of the lumbar vertebral bodies. Scattered disc space narrowing. Multilevel marginal osteop hyte formation throughout the visualized spine. There is facet joint arthropathy throughout the spine . Scattered at least moderate neural foraminal stenosis. IMPRESSION: 1. No acute fracture. 2. Moderate multilevel disc degeneration.
--- NOTE | 2023-07-04 16:30 | XR ---
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 Bending and flexion views were also obtained. FINDINGS: The osseous structures show normal alignment without evidence of an acute fracture. There are osteoph ytes noted throughout the cervical spine on the anterior and lateral aspects of the vertebral bodies. The intervertebral disk spaces are narrowed at multiple levels. Pedicles are intact. Soft tissues a re within normal limits. The odontoid appears intact. No abnormal alignment bending and flexion views . There is at least mild to moderate multilevel neural foraminal stenosis. IMPRESSION: 1. No fracture or dislocation. 2. Moderate degenerative disc disease changes of the cervical spine.
== END | disposition home or self-care (01) ==
LOC: RADXRMAIN 14:37
PROVIDERS: ATTEND Internal Medicine Cardiovascular Disease
DX: M47.812 Spondylosis without myelopathy or radiculopathy, cervical region (principal); M47.816 Spondylosis without myelopathy or radiculopathy, lumbar region; M51.36 Other intervertebral disc degeneration, lumbar region
CPT/HCPCS: 72052; 72100

== ENCOUNTER → 2023-10-30 | Outpatient (CLI) | payer MEDICARE, BC ==
--- NOTE | 2023-11-01 08:36 | MR ---
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 IV Contrast: cc . (None if empty) FINDINGS: Alignment: The lumbar vertebral bodies have preserved heights with grade 1 anterolisthesis of L4 on L 5. Cord: The conus medullaris and the distal spinal cord appear unremarkable with regards to their signa l intensity and morphology. Bones/Discs: Mild degeneration changes throughout the spine with osteophyte formation and facet joint arthropathy. Multilevel disc desiccation is present. T12-L1: No evidence of significant spinal canal stenosis or neural foraminal stenosis. L1-L2: No evidence of significant spinal canal stenosis or neural foraminal stenosis. L2-L3: Disc bulge and facet joint arthropathy result in mild spinal canal and moderate to severe left and moderate right neural foraminal stenosis. Left central osteophyte is present. L3-L4: Disc bulge and facet joint arthropathy result in mild spinal canal and moderate to severe left and moderate neural foraminal stenosis. Osteophyte displaces the exiting left nerve series 411 image 4. L4-L5: Disc uncovering from grade 1 anterolisthesis and facet joint arthropathy with moderate spinal canal stenosis and moderate to severe bilateral neural foraminal stenosis. L5-S1: Disc bulge and facet joint arthropathy result in mild spinal canal and severe right and modera te to severe left neural foraminal stenosis. No significant spinal canal or neural foraminal stenosis in the remainder of the visualized levels. Other findings: None. IMPRESSION: 1. No definitive evidence of disc herniation or significant spinal canal stenosis. 2. Multilevel disc degeneration with associated osteoarthritic changes. Neural foraminal stenosis wo rse at L5-S1 with severe right, L4-L5 with moderate to severe bilateral, L3-L4 moderate to severe lef t, L2-L3 moderate to severe left. An osteophyte displaces the exiting left nerve at L3-L4. This could possibly be the source of patient's sciatica.
== END | disposition home or self-care (01) ==
LOC: RADMRIMAIN 18:41
PROVIDERS: ATTEND Internal Medicine
DX: M51.16 Intervertebral disc disorders with radiculopathy, lumbar region (principal); M47.26 Other spondylosis with radiculopathy, lumbar region; M99.73 Connective tissue and disc stenosis of intervertebral foramina of lumbar region; M25.78 Osteophyte, vertebrae
CPT/HCPCS: 72148

== ENCOUNTER → 2024-02-21 | Outpatient (CLI) | payer MEDICARE, BC ==
[2024-02-21 15:17] LABS: Basophils # (A) 0.05 X 10*3/uL (0.00-0.10); Basophils % (A) 0.9 %; Eosinophils # (A) 0.28 X 10*3/uL (0.04-0.35); HCT 44.4 % (37.2-46.3); HGB 14.2 g/dL (12.0-15.0); Lymphocytes # (A) 1.75 X 10*3/uL (0.90-5.00); Lymphocytes % (A) 31.4 %; MCH 32.1 pg (27.0-32.0); MCV 100.5 FL (80.0-97.0); Mean Platelet Volume 10.7 FL (9.5-12.2); Monocytes # (A) 0.45 X 10*3/uL (0.20-1.00); Monocytes % (A) 8.1 %; NRBC Per 100 WBC 0 X 10*3/uL (0.00-0.01); Neutrophils # (A) 3.03 X 10*3/uL (1.80-7.70); Neutrophils % (A) 54.2 %; Platelet Count 269 X 10*3/uL (140-440); RBC 4.42 X 10*6/uL (4.10-5.20); RDW 15.6 % (11.5-14.5); WBC 5.58 X 10*3/uL (4.50-10.00)
[2024-02-21 15:58] LABS: Appearance,Urine Clear (Clear); Bilirubin,Urine Negative (Negative); Blood,Urine Negative (Negative); Color,Urine Yellow (Yellow); Ketones,Urine Negative (Negative); Nitrite,Urine Negative (Negative); Specific Gravity,Urine 1.012 (1.001-1.030); Urobilinogen,Urine 0.2 E.U./DL
[2024-02-21 16:00] LABS: ALT 15 U/L (8-44); AST 22 U/L (13-35); Albumin 4.4 g/dL (3.8-4.9); Alkaline Phosphatase 92 U/L (41-126); BUN/Creat Ratio 18.86 Ratio (12.00-20.00); Blood Urea Nitrogen 13.2 mg/dL (9.0-27.0); Calcium 9.8 mg/dL (8.7-10.3); Carbon Dioxide 26.5 mmol/L (21.6-31.8); Chloride 103 mmol/L (96-109); Chol/HDL Ratio 2.57 Ratio; Globulin 2.1 g/dL (1.6-3.3); Glucose 91 mg/dL (70-110); LDL Cholesterol,Calculated 93.2 mg/dL (0.0-131.0); Magnesium 1.6 mg/dL (1.5-2.4); Potassium 4.1 mmol/L (3.5-5.5); Sodium 139 mmol/L (135-145); Total Bilirubin 0.6 mg/dL (0.3-1.2); Total Protein 6.5 g/dL (6.2-8.2); Uric Acid 4.4 mg/dL (2.9-7.7); VLDL Calculation 14.24 mg/dL (5.00-40.00)
[2024-02-21 16:17] LABS: Bacteria,Urine None Seen (None Seen)
== END | disposition home or self-care (01) ==
LOC: LABWHC1 11:07
PROVIDERS: ATTEND Internal Medicine
DX: I10 Essential (primary) hypertension (principal); E78.2 Mixed hyperlipidemia; M85.852 Other specified disorders of bone density and structure, left thigh
CPT/HCPCS: 36415; 80053; 80061; 81001; 82306; 83036; 83735; 84443; 84550; 85025

== ENCOUNTER 2024-03-12 01:13 | Emergency (ER) | payer MEDICARE, BC ==
[2024-03-12 01:25] VITALS: RESP 19
[2024-03-12 02:17] LABS: Basophils % (A) 1 %; Eosinophils # (A) 0.2 k/uL (0-0.7); Eosinophils % (A) 4 %; HCT 42.3 % (34.0-46.0); HGB 13.5 gm/dL (11.4-16.0); Lymphocytes # (A) 1.6 k/uL (1.0-4.8); Lymphocytes % (A) 23 %; MCH 31.6 pg (25.0-35.0); MCV 98.8 fL (80.0-100.0); Mean Platelet Volume 7.3; Monocytes # (A) 0.4 k/uL (0-1.0); Monocytes % (A) 7 %; Neutrophils # (A) 4.4 k/uL (1.3-7.7); Neutrophils % (A) 64 %; Platelet Count 275 k/uL (150-450); RBC 4.29 m/uL (3.80-5.40); RDW 14.6 % (11.5-15.5); WBC 6.9 k/uL (3.8-10.6)
[2024-03-12 02:28] LABS: ALT 17 U/L (4-34); AST 36 U/L (14-36); African American GFR (CKD) >90 (>60 ml/min/1.73 sqM); Albumin 4.1 g/dL (3.5-5.0); Alkaline Phosphatase 90 U/L (38-126); Anion Gap 4 mmol/L; Blood Urea Nitrogen 22 mg/dL (7-17); Calcium 9.5 mg/dL (8.4-10.2); Carbon Dioxide 29 mmol/L (22-30); Chloride 98 mmol/L (98-107); Glucose 91 mg/dL (74-99); Magnesium 1.5 mg/dL (1.6-2.3); Non-African American GFR(CKD) 81 (>60 ml/min/1.73 sqM); Potassium 4.4 mmol/L (3.5-5.1); Sodium 131 mmol/L (137-145); Total Bilirubin 0.4 mg/dL (0.2-1.3); Total Protein 6.5 g/dL (6.3-8.2)
[2024-03-12] MEDS: MAGNESIUM SULFATE-D5W PMX 1 GM in DEXTROSE/WATER 1 100ML.BAG IVPB ONE (02:55)
[2024-03-12 03:01] LABS: INR 0.9 (<1.2); Partial Thromboplastin Time 26.9 sec (22.0-30.0); Prothrombin Time 10.2 sec (10.0-12.5)
--- NOTE | 2024-03-12 03:08 | ED ---
URI HPI - General Chief Complaint: Upper Respiratory Infection Stated Complaint: cough flank pain Time Seen by Provider: 03/12/24 01:30 Source: patient Limitations: no limitations - History of Present Illness Initial Comments: 84-year-old female presenting with chief complaint of chest wall pain. Patient has had a cough for few days and now is having sharp and severe pain to the left-sided rib cage under the breast when she coughs or sneezes. States that she does not notice the pain when she takes deep breaths. Pain was not reproducible on exam. No lower extremity swelling. No recent surgery or long travel. No difficulty breathing. No fever. - Related Data Home Medications Medication Instructions Recorded Confirmed Pravastatin Sodium [Pravachol] 80 mg PO HS 11/05/14 03/24/19 Chlorthalidone [Hygroten] 50 mg PO DAILY 08/30/18 03/24/19 lisinopriL [Zestril] 10 mg PO DAILY 08/30/18 03/24/19 Calcium Carbonate [Calcium] 600 mg PO BID 01/06/19 03/24/19 Cholecalciferol (Vitamin D3) 5,000 unit PO DAILY 01/06/19 03/24/19 [Vitamin D3] Lutein 25 mg PO DAILY 01/06/19 03/24/19 Multivitamins, Thera [Multivitamin 1 tab PO DAILY 01/06/19 03/24/19 (formulary)] Mason-3 Fatty Acids/Fish Oil [Fish 1,400 each PO DAILY 01/06/19 03/24/19 Oil 1,000 mg Softgel] Omeprazole [PriLOSEC] 20 mg PO AC-BRKFST 01/06/19 03/24/19 Previous Rx's Medication Instructions Recorded Aspirin 81 mg PO DAILY chew 03/28/19 Aspirin [Adult Low Dose Aspirin EC] 81 mg PO BID #60 tablet. 03/28/19 Docusate [Colace] 100 mg PO DAILY #30 capsule 03/28/19 Hydrocodone/Acetaminophen [[place] 1 - 2 each PO Q6HR PRN #40 tab 03/28/19 5-325] Lidocaine 5% Patch [Lidoderm 5% 1 patch TOPICAL DAILY PRN #30 patch 03/12/24 Patch] Allergies Allergy/AdvReac Type Severity Reaction Status Date / Time alprazolam [From Xanax] AdvReac Unknown SPEECH Verified 03/12/24 01:20 SLURRED, DIFFICULTY WRITING aspirin AdvReac Burning Verified 03/12/24 01:20 sensation in stomach. Can only take Enteric Coated. erythromycin base AdvReac Abdominal Verified 03/12/24 01:20 Pain Estrogen Shot Preservative Allergy Swelling Uncoded 03/12/24 01:20 And Redness Review of Systems ROS Statement: Those systems with pertinent positive or pertinent negative responses have been documented in the HPI. ROS Other: All systems not noted in ROS Statement are negative. Past Medical History Past Medical History: Cancer, GERD/Reflux, Hyperlipidemia, Hypertension, Osteoarthritis (OA) Additional Past Medical History / Comment(s): skin cancer History of Any Multi-Drug Resistant Organisms: None Reported Past Surgical History: Section, Hysterectomy, Joint Replacement, Tonsillectomy, Tubal Ligation Additional Past Surgical History / Comment(s): cataracts removed, Moh's procedure to remove skin cancer Past Anesthesia/Blood Transfusion Reactions: No Reported Reaction Past Psychological History: Anxiety Smoking Status: Former smoker Past Alcohol Use History: Rare Past Drug Use History: None Reported - Past Family History Father Family Medical History: Cancer General Exam Limitations: no limitations General appearance: alert, in no apparent distress Head exam: Present: atraumatic, normocephalic, normal inspection Eye exam: Present: normal appearance, EOMI Neck exam: Present: normal inspection. Absent: meningismus Respiratory exam: Present: normal lung sounds bilaterally. Absent: respiratory distress, wheezes, rales, rhonchi, stridor Cardiovascular Exam: Present: regular rate, normal rhythm, normal heart sounds. Absent: systolic murmur, diastolic murmur, rubs, gallop, clicks Neurological exam: Present: alert, oriented X3 Psychiatric exam: Present: normal affect, normal mood Skin exam: Present: warm, dry, normal color Course Vital Signs 03/12/24 03/12/24 01:20 04:18 Temperature 98.2 F 98.4 F Pulse Rate 71 81 Respiratory 19 19 Rate Blood Pressure 164/94 150/89 O2 Sat by Pulse 99 98 Oximetry Medical Decision Making - Medical Decision Making Was pt. sent in by a medical professional or institution (, PA, [employer], urgent care, hospital, or snf...) When possible be specific @ -No Did you speak to anyone other than the patient for history (EMS, parent, family, police, friend...)? What history was obtained from this source @ -No Did you review nursing and triage notes (agree or disagree)? Why? @ -I reviewed and agree with nursing and triage notes Were old charts reviewed (outside hosp., previous admission, EMS record, old EKG, old radiological studies, urgent care reports/EKG's, snf records)? Report findings @ -No old charts were reviewed Differential Diagnosis (chest pain, altered mental status, abdominal pain women, abdominal pain men, vaginal bleeding, weakness, fever, dyspnea, syncope, headache, dizziness, GI bleed, back pain, seizure, CVA, palpatations, mental health, musculoskeletal)? @ -MDM Differential Chest Pain: Stable Angina, Unstable Angina, STEMI, NSTEMI Aortic Dissection, Pneumothorax, Musculoskeletal, Esophageal Spasm GERD, Cholecystitis, Pancreatitis, Z alysa This is not meant to be an all-inclusive list. EKG interpreted by me (3pts min.). @ -EKG shows sinus rhythm ventricular rate 61. OH interval 135. QRS 85. QT 396. QTc 399. X-rays interpreted by me (1pt min.). @ -Chest x-ray shows no acute disease CT interpreted by me (1pt min.). @ -None done U/S interpreted by me (1pt. min.). @ -None done What testing was considered but not performed or refused? (CT, X-rays, U/S, labs)? Why? @ -None What meds were considered but not given or refused? Why? @ -None Did you discuss the management of the patient with other professionals (lukasz gonzalez i.e. , PA, [employer], lab, RT, psych nurse, social work msw, feeder switchboard operator, teacher, founder and chief executive officer, block and case maker)? Give summary @ -No Was smoking cessation discussed for >3mins.? @ -No Was critical care preformed (if so, how long)? @ -No Were there social determinants of health that impacted care today? How? (Homelessness, low income, unemployed, alcoholism, drug addiction, transportation, low edu. Level, literacy, decrease access to med. care, half-way, rehab)? @ -No Was there de-escalation of care discussed even if they declined (Discuss DNR or withdrawal of care, Hospice)? DNR status @ -No What co-morbidities impacted this encounter? (DM, HTN, Smoking, COPD, CAD, Cancer, CVA, ARF, Chemo, Hep., AIDS, mental health diagnosis, sleep apnea, morbid obesity)? @ -None Was patient admitted / discharged? Hospital course, mention meds given and route, prescriptions, significant lab abnormalities, going to OR and other pertinent info. @ -84-year-old female presenting with chief complaint of chest wall pain with coughing. History and physical examination are conducted. Heart lungs are c lear to auscultation. Magnesium 1.5, patient is given 1 g magnesium sulfate. No leukocytosis or anemia. Negative troponin and negative age-adjusted D-dimer. She is negative for influenza, RSV, COVID. Chest x-ray shows no acute process. Likely inflammation due to repeated coughing. She was treated with lidocaine patch and 1 dose of Decadron 10 mg. She will be given lidocaine patches for janie e. Educated on today's findings and supportive management. Incentive spirometer is ordered. Discharged. Follow-up with PCP. Report back to ER with any new or worsening symptoms. Discussed return parameters and answered all questions. Patient conveyed verbal understanding and agreed to the plan. I discussed this case in detail with my attending Dr. Spencer Undiagnosed new problem with uncertain prognosis? @ -No Drug Therapy requiring intensive monitoring for toxicity (Heparin, Nitro, Ins ulin, Cardizem)? @ -No Were any procedures done? @ -No Diagnosis/symptom? @ -Chest wall pain, URI Acute, or Chronic, or Acute on Chronic? @ -Acute Uncomplicated (without systemic symptoms) or Complicated (systemic symptoms)? @ -Complicated Side effects of treatment? @ -No Exacerbation, Progression, or Severe Exacerbation? @ -No Poses a threat to life or bodily function? How? (Chest pain, USA, ND, pneumonia, PE, COPD, DKA, ARF, appy, cholecystitis, CVA, Diverticulitis, Homicidal, Suicidal, threat to staff... and all critical care pts) @ -Low likelihood - Lab Data Result diagrams: 03/12/24 02:00 03/12/24 02:00 Lab Results 03/12/24 03/12/24 03/12/24 Range/Units 02:00 02:00 02:00 WBC 6.9 (3.8-10.6) k/uL RBC 4.29 (3.80-5.40) m/uL Hgb 13.5 (11.4-16.0) gm/dL Hct 42.3 (34.0-46.0) % MCV 98.8 (80.0-100.0) fL MCH 31.6 (25.0-35.0) pg MCHC 32.0 (31.0-37.0) g/dL RDW 14.6 (11.5-15.5) % Plt Count 275 (150-450) k/uL MPV 7.3 Neutrophils % 64 % Lymphocytes % 23 % Monocytes % 7 % Eosinophils % 4 % Basophils % 1 % Neutrophils # 4.4 (1.3-7.7) k/uL Lymphocytes # 1.6 (1.0-4.8) k/uL Monocytes # 0.4 (0-1.0) k/uL Eosinophils # 0.2 (0-0.7) k/uL Basophils # 0.0 (0-0.2) k/uL PT 10.2 (10.0-12.5) sec INR 0.9 (<1.2) APTT 26.9 (22.0-30.0) sec D-Dimer 0.51 (<0.60) mg/L FEU Sodium 131 L (137-145) mmol/L Potassium 4.4 (3.5-5.1) mmol/L Chloride 98 (98-107) mmol/L Carbon Dioxide 29 (22-30) mmol/L Anion Gap 4 mmol/L BUN 22 H (7-17) mg/dL Creatinine 0.67 (0.52-1.04) mg/dL Est GFR (CKD-EPI)AfAm >90 (>60 ml/min/1.73 sqM) Est GFR (CKD-EPI)NonAf 81 (>60 ml/min/1.73 sqM) Glucose 91 (74-99) mg/dL Calcium 9.5 (8.4-10.2) mg/dL Magnesium 1.5 L (1.6-2.3) mg/dL Total Bilirubin 0.4 (0.2-1.3) mg/dL AST 36 (14-36) U/L ALT 17 (4-34) U/L Alkaline Phosphatase 90 (38-126) U/L Troponin I (0.000-0.034) ng/mL Total Protein 6.5 (6.3-8.2) g/dL Albumin 4.1 (3.5-5.0) g/dL Influenza Type A (PCR) (Not Detectd) Influenza Type B (PCR) (Not Detectd) RSV (PCR) (Not Detectd) SARS-CoV-2 (PCR) (Not Detectd) 03/12/24 03/12/24 Range/Units 02:00 02:00 WBC (3.8-10.6) k/uL RBC (3.80-5.40) m/uL Hgb (11.4-16.0) gm/dL Hct (34.0-46.0) % MCV (80.0-100.0) fL MCH (25.0-35.0) pg MCHC (31.0-37.0) g/dL RDW (11.5-15.5) % Plt Count (150-450) k/uL MPV Neutrophils % % Lymphocytes % % Monocytes % % Eosinophils % % Basophils % % Neutrophils # (1.3-7.7) k/uL Lymphocytes # (1.0-4.8) k/uL Monocytes # (0-1.0) k/uL Eosinophils # (0-0.7) k/uL Basophils # (0-0.2) k/uL PT (10.0-12.5) sec INR (<1.2) APTT (22.0-30.0) sec D-Dimer (<0.60) mg/L FEU Sodium (137-145) mmol/L Potassium (3.5-5.1) mmol/L Chloride (98-107) mmol/L Carbon Dioxide (22-30) mmol/L Anion Gap mmol/L BUN (7-17) mg/dL Creatinine (0.52-1.04) mg/dL Est GFR (CKD-EPI)AfAm (>60 ml/min/1.73 sqM) Est GFR (CKD-EPI)NonAf (>60 ml/min/1.73 sqM) Glucose (74-99) mg/dL Calcium (8.4-10.2) mg/dL Magnesium (1.6-2.3) mg/dL Total Bilirubin (0.2-1.3) mg/dL AST (14-36) U/L ALT (4-34) U/L Alkaline Phosphatase (38-126) U/L Troponin I <0.012 (0.000-0.034) ng/mL Total Protein (6.3-8.2) g/dL Albumin (3.5-5.0) g/dL Influenza Type A (PCR) Not Detected (Not Detectd) Influenza Type B (PCR) Not Detected (Not Detectd) RSV (PCR) Not Detected (Not Detectd) SARS-CoV-2 (PCR) Not Detected (Not Detectd) Disposition Clinical Impression: URI (upper respiratory infection), Chest wall pain Disposition: HOME SELF-CARE Condition: Good Instructions (If sedation given, give patient instructions): Upper Respiratory Infection (ED), Chest Wall Pain (ED) Additional Instructions: Follow-up with PCP. Report back to ER with any new or worsening symptoms. Prescriptions: Lidocaine 5% Patch [Lidoderm 5% Patch] 1 patch TOPICAL DAILY PRN #30 patch PRN Reason: Pain Is patient prescribed a controlled substance at d/c from ED?: No Referrals: Rolando Hammonds MD [Primary Care Provider] - 1-2 days Time of Disposition: 03:35
[2024-03-12] MEDS: DEXAMETHASONE SOD PHOSPHATE 10 MG/ML 1 ML VIAL IV STA (04:08)
[2024-03-12] MEDS: LIDOCAINE 4% PATCH TOPICAL ONE (04:10)
[2024-03-12 04:20] VITALS: BP 150/89; PULSE 81; TEMP 98.4
--- NOTE | 2024-03-12 05:46 | XR ---
EXAM: XR Chest, 2 Views CLINICAL HISTORY: ITS.REASON XR Reason: difficulty breathing TECHNIQUE: Frontal and lateral views of the chest. COMPARISON: Chest radiograph on 08/30/2018 FINDINGS: Hardware: None. Lungs/pleura: Normal. No focal consolidation. No pleural effusion or pneumothorax. Heart/mediastinum: Atherosclerotic changes in the aorta. No cardiomegaly. Soft tissues: Unremarkable. Bones: No acute fracture. Upper abdomen: Normal. IMPRESSION: No acute disease identified.
== END 2024-03-12 04:19 | disposition home or self-care (01) ==
LOC: EC 01:13
CPT/HCPCS: 36415; 71046; 80053; 83735; 84484; 85025; 85379; 85610; 85730; 87636; 93005; 96365; 96375; 99284

== ENCOUNTER → 2024-04-29 | Outpatient (CLI) | payer MEDICARE, BC ==
--- NOTE | 2024-04-29 15:55 | US ---
EXAMINATION TYPE: US venous doppler duplex LE BI DATE OF EXAM: 04/29/2024 3:46 PM COMPARISON: [facility] 2022 CLINICAL INDICATION: Female, 84 years old with history of M79.605 PAIN IN LEFT LEG; No hx of DVT. Pat ient takes baby aspirin. Swelling TECHNIQUE: The lower extremity deep venous system is examined utilizing real time linear array sonog corine with graded compression, color doppler sonography, and spectral doppler. SIDE PERFORMED: Bilateral FINDINGS: VESSELS IMAGED: Common Femoral Vein Deep Femoral Vein Greater Saphenous Vein * Femoral Vein Popliteal Vein Small Saphenous Vein * Proximal Calf Veins (* superficial vessels) Right Leg: No evidence of DVT. Color Doppler imaging shows patency of the vessels. Spectral waveform s are within normal limits. Left Leg: No evidence of DVT. Color Doppler imaging shows patency of the vessels. Spectral waveforms are within normal limits. IMPRESSION: No ultrasound evidence for deep venous thrombosis. [facility], , 04/29/2024 3:53 PM
== END | disposition home or self-care (01) ==
LOC: RADUSWWP 15:25
PROVIDERS: ATTEND Internal Medicine
DX: M79.605 Pain in left leg (principal); M79.604 Pain in right leg
CPT/HCPCS: 93970

== ENCOUNTER → 2024-08-12 | Outpatient (CLI) | payer MEDICARE, BC ==
--- NOTE | 2024-08-12 10:23 | US ---
EXAMINATION TYPE: US gallbladder DATE OF EXAM: 08/12/2024 COMPARISON: CT CLINICAL INDICATION: Female, 84 years old with history of R14.0 ABDOMINAL BLOATING; Pt states ABD blo ating TECHNIQUE: Grayscale and color Doppler imaging of the right upper quadrant was performed. FINDINGS: EXAM MEASUREMENTS: Liver Length: 14.7 cm Gallbladder Wall: 0.1 cm CBD: 0.5 cm Right Kidney: 9.2 x 4.7 x 5.0 cm [employer] SAL[employer] NOTES: Pancreas: 3mm panc duct visualized, tail obscured by overlying bowel gas Liver: Visualized portions appeared wnl Gallbladder: wnl Evidence for sonographic Rothman's sign: No CBD: wnl Right Kidney: Cortical thinning, no evidence of hydro IMPRESSION: 1. No evidence for acute process. 2. Medical renal disease. [facility], , 08/12/2024 10:21 AM
== END | disposition home or self-care (01) ==
LOC: RADUSWWP 09:43
PROVIDERS: ATTEND Internal Medicine
DX: N28.9 Disorder of kidney and ureter, unspecified (principal)
CPT/HCPCS: 76705

== ENCOUNTER → 2024-09-23 | Outpatient (CLI) | payer MEDICARE, BC ==
[2024-09-23 14:04] LABS: Appearance,Urine Clear (Clear); Bilirubin,Urine Negative (Negative); Blood,Urine Negative (Negative); Color,Urine Colorless; Glucose,Urine (UA) Negative (Negative); Ketones,Urine Negative (Negative); Leukocyte Esterase,Urine Large (Negative); Mucus,Urine Rare /hpf; Nitrite,Urine Negative (Negative); Protein,Urine Negative (Negative); RBC,Urine 2 /hpf (0-5); Specific Gravity,Urine 1.011 (1.001-1.035); Urobilinogen,Urine <2.0 mg/dL (<2.0); WBC,Urine 9 /hpf (0-5)
[2024-09-23 15:07] LABS: Basophils # (A) 0.04 X 10*3/uL (0.00-0.10); Basophils % (A) 0.7 %; Eosinophils # (A) 0.22 X 10*3/uL (0.04-0.35); Eosinophils % (A) 3.7 %; HCT 42.3 % (37.2-46.3); HGB 13.9 g/dL (12.0-15.0); Lymphocytes # (A) 1.62 X 10*3/uL (0.90-5.00); Lymphocytes % (A) 27.2 %; MCH 32.6 pg (27.0-32.0); MCHC 32.9 g/dL (32.0-37.0); MCV 99.3 FL (80.0-97.0); Mean Platelet Volume 10.3 FL (9.5-12.2); Monocytes # (A) 0.49 X 10*3/uL (0.20-1.00); Monocytes % (A) 8.2 %; NRBC Per 100 WBC 0 X 10*3/uL (0.00-0.01); Neutrophils # (A) 3.56 X 10*3/uL (1.80-7.70); Neutrophils % (A) 59.7 %; Platelet Count 263 X 10*3/uL (140-440); RBC 4.26 X 10*6/uL (4.10-5.20); RDW 14.9 % (11.5-14.5); WBC 5.96 X 10*3/uL (4.50-10.00)
[2024-09-23 15:37] LABS: ALT 14 U/L (8-44); AST 23 U/L (13-35); Albumin 3.9 g/dL (3.8-4.9); Albumin/Globulin Ratio 1.95 Ratio (1.60-3.17); Alkaline Phosphatase 89 U/L (41-126); Blood Urea Nitrogen 14.7 mg/dL (9.0-27.0); Calcium 9.3 mg/dL (8.7-10.3); Chloride 105 mmol/L (96-109); Chol/HDL Ratio 2.64 Ratio; Glucose 99 mg/dL (70-110); LDL Cholesterol,Calculated 83.6 mg/dL (0.0-131.0); Magnesium 1.9 mg/dL (1.5-2.4); Potassium 4.2 mmol/L (3.5-5.5); Sodium 142 mmol/L (135-145); Total Bilirubin 0.5 mg/dL (0.3-1.2); Total Protein 5.9 g/dL (6.2-8.2); VLDL Calculation 17.68 mg/dL (5.00-40.00)
== END | disposition home or self-care (01) ==
LOC: LABWHC1 12:06
PROVIDERS: ATTEND Internal Medicine
DX: I10 Essential (primary) hypertension (principal); E78.2 Mixed hyperlipidemia; M85.852 Other specified disorders of bone density and structure, left thigh
CPT/HCPCS: 36415; 80053; 80061; 81001; 82306; 83036; 83735; 84443; 84550; 85025

== ENCOUNTER → 2024-09-30 | Outpatient (CLI) | payer MEDICARE, BC ==
--- NOTE | 2024-09-30 14:55 | XR ---
EXAMINATION TYPE: XR foot complete RT DATE OF EXAM: 09/30/2024 COMPARISON: NONE HISTORY: Pain TECHNIQUE: Frontal, lateral and oblique images of the right foot are obtained. FINDINGS: There is no acute fracture/dislocation evident. The joint spaces appear within normal pathak its. The overlying soft tissue appears unremarkable. Moderate size posterior and plantar calcaneal e nthesophytes. Dorsal mid foot osteophytosis. IMPRESSION: No acute fracture or dislocation seen. [facility], , 09/30/2024 2:53 PM
== END | disposition home or self-care (01) ==
LOC: RADXRMAIN 14:24
PROVIDERS: ATTEND Podiatrist Primary Podiatric Medicine
DX: M79.671 Pain in right foot (principal)